=== PATIENT | female | born 1980 | race Caucasian/White ===

== ENCOUNTER 2020-05-30 18:26 | Emergency (ER) | payer OTHER, SELFPAY ==
[2020-05-30 18:27] VITALS: BP 114/81; PULSE 118; RESP 20; TEMP 36.9; O2SAT 100; BMI 26.2
--- NOTE | 2020-05-30 18:42 | HMH.EDGENADL ---
ED Disposition Condition on Discharge: Serious - Critical Care Critical Care Time: No <MohinijamJean - Last Filed: 05/30/20 20:00> <Martin Fabian - Last Filed: 05/30/20 20:52> Clinical Impression: Hemorrhage, , early, Miscarriage Disposition: Home, Self-Care Instructions: DI for Miscarriage Additional Instructions: fluids and see dr ballesteros for follow up and recheck levels on sunday and return to ed if needed Referrals: PCP,Merlene [Primary Care Provider] - Costa Ballesteros MD [Staff Physician] - Attestation: On 05/30/20, the high probability of a clinically significant, sudden or life threatening deterioration of the following system(s) required my full and direct attention, intervention and personal management. The time I documented below is in addition to time spent performing reported procedures but includes the following listed in this critical care notation. Medical Decision Making - Feliciaon Inquiry Pt receiving controlled substance: No - Lab Data Result diagrams: 05/30/20 18:36 05/30/20 18:36 <VladislavJean - Last Filed: 05/30/20 20:00> - Lab Data Lab results reviewed: Yes: I reviewed the patient's lab results. Result diagrams: 05/30/20 18:36 05/30/20 18:36 - US Data US Images: Pelvis ED US Reviewed: Yes: I discussed the US results w/the radiologist Preliminary Findings: Abnormal Pelvis (prob miscarriage ) - Physician Consults Physician Consulted: conrado Reason -: Pt condition - Reevaluation(s) Time: 20:49 <Martin Fabian - Last Filed: 05/30/20 20:52> Vital Signs: 05/30/20 18:27 Temperature 98.4 F Temperature Source Oral Pulse Rate [Left Radial] 118 H Respiratory Rate 20 Blood Pressure [Right Arm] 114/81 Blood Pressure Mean [Right Arm] 92 Blood Pressure Source [Right Arm] Automatic Cuff Blood Pressure Position [Right Arm] Sitting 02 Sat by Pulse Oximetry 100 Oxygen Delivery Method Room Air - Lab Data Lab Results 05/30/20 18:36: WBC 16.3 H, RBC 4.34, Hgb 13.2, Hct 39.9, MCV 91.8, MCH 30.5, MCHC 33.2, RDW 13.7, Plt Count 311, MPV 8.0, Neut % (Auto) 67.4, Lymph % (Auto) 26.3, [place] % (Auto) 4.3, Eos % (Auto) 1.5, Baso % (Auto) 0.4, Neut # (Auto) 11.0 H, Lymph # (Auto) 4.3, [place] # (Auto) 0.7, Eos # (Auto) 0.3, Baso # (Auto) 0.1, Total Counted 100, Neutrophils % (Manual) 82 H, Lymphocytes % (Manual) 14, Monocytes % (Manual) 4, Platelet Estimate Normal, RBC Morphology Normal 05/30/20 18:36: Sodium 134 L, Potassium 3.6, Chloride 101, Carbon Dioxide 29, Anion Gap 7.6, BUN 6 L, Creatinine 0.60, Estimated Creat Clear 117, Estimated GFR 111, Est GFR ( Amer) 135, Glucose 89, Calcium 9.5, Total Bilirubin 0.4, AST 41 H, ALT 46, Alkaline Phosphatase 89, Total Protein 8.8 H, Albumin 4.4, Globulin 4.4 H, Albumin/Globulin Ratio 1.0 L 05/30/20 18:36: Serum HCG, Qual Positive 05/30/20 18:36: TSH 2.44, Free T4 Index 3.3 L, Thyroxine (T4) 10.9, T3 Uptake 30 05/30/20 18:36: HCG, Quant 9272 H 05/30/20 18:51: Urine Color Red, Urine Appearance Turbid, Urine pH 6.5, Ur Specific [place] 1.025, Urine Protein 3+, Urine Glucose (UA) Negative, Urine Ketones Negative, Urine Blood 3+, Urine Nitrate Negative, Urine Bilirubin Negative, Urine Urobilinogen 0.2, Ur Leukocyte Esterase Negative, Urine RBC Tntc, Urine WBC 10-20 Orders (Tests/Meds): ED MEDICATIONS Generic Name Dose Route Start Last Admin Trade Name Freq PRN Reason Stop Dose Admin Sodium Chloride 1,000 mls @ 999 mls/hr 05/30/20 19:00 05/30/20 18:58 Sod Chlor 0.9% 1000ml Bag IV 05/30/20 20:00 999 mls/hr .[id number] RICKY Administration ORDERS Category Date Time Status ABO/RH Type Stat BBK 05/30/20 20:41 Ordered Urine Culture Stat Micro 05/30/20 18:51 Received US OB transvaginal Stat Ultrasound 05/30/20 19:25 Ordered - Reevaluation(s) Reevaluation #1: doing better (Martin Fabian) Medical Decision Narrative: 8:00 PM: At shift change, I have discussed the patient with Dr. Fabian, who will a
[2020-05-30 18:47] LABS: Basophils # 0.1 K/mm3 (0-0.2); Basophils % 0.4 % (0.1-2.0); Eosinophils # 0.3 K/mm3 (0.0-0.4); Eosinophils % 1.5 % (0.1-12.0); Hematocrit 39.9 % (37.0-47.0); Hemoglobin 13.2 g/dL (12.2-16.2); Lymphocytes # 4.3 K/mm3 (0.7-4.5); Lymphocytes % 26.3 % (10-50); Mean Corpuscular HGB Conc 33.2 g/dL (31.8-35.4); Mean Corpuscular Hemoglobin 30.5 pg (27.0-31.2); Mean Corpuscular Volume 91.8 fl (81-99); Monocytes # 0.7 K/mm3 (0.1-1.0); Monocytes % 4.3 % (1.7-9.3); Neutrophils % 67.4 % (37.0-80.0); Platelet Count 311 K/mm3 (142-424); Red Blood Count 4.34 M/mm3 (4.20-5.40); Red Cell Distribution Width 13.7 % (11.5-17.5); White Blood Count 16.3 K/mm3 (4.8-10.8)
[2020-05-30 18:52] LABS: MANUAL DIFFERENTIAL MANUAL DIFFERENTIAL (MANUAL DIFF)
[2020-05-30 18:53] LABS: Chloride 101 mmol/L (98-107); Potassium 3.6 mmoL/L (3.5-5.1); Sodium 134 mmol/L (136-145)
[2020-05-30 18:54] LABS: Microscopic, Urine URINE MICROSCOPIC (MICROSCOPIC)
[2020-05-30 18:56] LABS: Alanine Aminotransferase 46 U/L (12-78); Albumin Level 4.4 g/dl (3.5-5.0); Alkaline Phosphatase 89 U/L (38-126); Anion Gap 7.6 mEq/L (5-15); Aspartate Amino Transferase 41 U/L (14-36); Bilirubin,Total 0.4 mg/dl (0.2-1.3); Blood Urea Nitrogen 6 mg/dl (7-17); Carbon Dioxide 29 mmol/L (22.0-30.0); Creatinine Clearance Estimated 117 mL/min (50-200); Estimated Glomerular Filt Rate 111 ml/min (>60); GFR (African American) 135 ML/MIN (>60); Globulin 4.4 g/dL (1.3-3.2); Total Protein,Serum 8.8 g/dl (6.3-8.2)
[2020-05-30 18:57] LABS: Calcium 9.5 mg/dl (8.4-10.2); Glucose 89 mg/dl (74-100)
[2020-05-30 19:01] LABS: HCG Qualitative, Serum Positive (Negative)
[2020-05-30 19:02] LABS: Appearance,Urine TURBID (Clear); Bilirubin,Urine Negative (Negative); Blood, Urine 3+ (Negative); Color,Urine RED (Yellow); Glucose,Urine (UA) Negative (Negative); Ketones,Urine Negative (Negative); Leukocyte Esterase,Urine Negative (Negative); Nitrate,Urine Negative (Negative); PH,Urine 6.5 (5.0-8.5); Protein,Urine 3+ (Negative); Specific Gravity, Urine 1.025 (1.005-1.030); Urobilinogen,Urine 0.2 EU/dl (0.2)
[2020-05-30 19:03] LABS: RBC,Urine TNTC #/hpf (0-3)
[2020-05-30 19:05] LABS: Lymphocytes % 14 % (10-50); Monocytes % 4 % (2-9); Neutrophils % 82 % (42-76); Platelet Estimate Normal; RBC Morphology Normal; Total Cells Counted 100
--- NOTE | 2020-05-30 19:25 | US_ITS ---
PROCEDURE: US OB TRANSVAGINAL CLINICAL INDICATION: bleeding, , r/o ectopic COMPARISON: No exams were available for comparison FINDINGS: The uterus is prominent at 9 x 5 x 5 cm. The endometrium is thickened at 18 mm with irregularity of the endometrium and heterogeneous echogenicity of the endometrium with some areas of decreased echogenicity but with irregular contour and may represent blood clot. A normal appearing gestational sac is not identified The left ovary is 3 x 3 cm. The right ovary is 2.6 x 2.4 cm. A small cyst is present in the left ovary with some irregularity of its margins possibly due to a corpus luteum. Cannot exclude the possibility of an ectopic . No cul-de-sac fluid evident. IMPRESSION: 1. Thickened endometrium with heterogeneous echogenicity suggesting blood clot. A normal gestational sac is not identified. 2. Possible corpus luteum cyst on the left. Cannot exclude the possibility of an ectopic based on the above imaging findings. Follow-up is suggested Dictated by: Orestes Tinoco MD 05/31/2020 09:11 Orestes Tinoco MD in [facility] 05/31/2020 09:11
[2020-05-30 19:30] LABS: Triiodothryronine (T3) Uptake 30 % (23.5-40.5)
[2020-05-30 19:31] LABS: Free Thyroxine Index 3.3 ug/dL (5.93-13.13); T4 (Thyroxine) 10.9 ug/dl (5.53-11.0)
[2020-05-30 19:44] LABS: Thyroid Stimulating Hormone 2.44 uIU/mL (0.465-4.68)
[2020-05-30 19:49] LABS: HCG,Quantitative 9272 mIU/ml (0-5.42)
--- NOTE | 2020-05-30 20:35 | PC.NURSE ---
Pt back in room from [facility]
[2020-05-30 21:29] VITALS: BP 117/78; PULSE 91; RESP 16; TEMP 36.9; O2SAT 99
== END 2020-05-30 21:32 | disposition home or self-care (01) ==
PROVIDERS: Emergency Provider Emergency Medicine
DX: O08.1 Delayed or excessive hemorrhage following ectopic and molar pregnancy; Z88.0 Allergy status to penicillin; Z85.41 Personal history of malignant neoplasm of cervix uteri
CPT/HCPCS: 76817; 80053; 81001; 84436; 84443; 84479; 84702; 84703; 85007; 85025; 86900; 86901; 87086; 96365; 99283

== ENCOUNTER → 2020-06-10 15:34 | Outpatient (CLI) | payer OTHER, SELFPAY ==
[2020-06-10 16:44] LABS: HCG,Quantitative 149 mIU/ml (0-5.42)
== END ==
PROVIDERS: Visit Provider Obstetrics & Gynecology
DX: O03.9 Complete or unspecified spontaneous abortion without complication (principal)
CPT/HCPCS: 36415; 84702

== ENCOUNTER → 2020-06-11 11:12 | Outpatient (CLI) | payer OTHER, SELFPAY ==
--- NOTE | 2020-06-11 11:24 | US_ITS ---
PROCEDURE: US TRANSVAGINAL CLINICAL INDICATION: MISCARRIAGE Vaginal bleeding COMPARISON: US US OB TRANSVAGINAL from 05/30/2020 FINDINGS: UTERUS: 7cm x 4cmx 4cm with a combined endometrial thickness of there is some heterogeneous echogenicity within the endometrial area at the fundal portion. The endometrium at this region measures 11 mm in thickness. LEFT OVARY: 9wls4una8.6cm with a volume of 7.5ml. RIGHT OVARY: [id number] with a volume of 9.6ml. There is a small amount fluid in the cul-de-sac. No adnexal mass apparent IMPRESSION: There is some heterogeneous echogenicity within the endometrium which could be due to some residual blood/retained products of conception. Follow-up is suggested to confirm resolution. The heterogeneous echogenicity of the endometrium is somewhat less apparent than when compared to 05/30/2020. Dictated by: Orestes Tinoco MD 06/11/2020 13:33 Orestes Tinoco MD in [facility] 06/11/2020 13:33
== END ==
PROVIDERS: Visit Provider Obstetrics & Gynecology
DX: R10.2 Pelvic and perineal pain (principal); O03.9 Complete or unspecified spontaneous abortion without complication
CPT/HCPCS: 76830

== ENCOUNTER 2021-04-15 05:26 | Inpatient (IN) | payer OTHER, SELFPAY ==
[2021-04-15] VITALS (45 sets, daily range): BP systolic 91–197; BP diastolic 55–119; PULSE 80–141; RESP 18–39; TEMP 36.6–37.7; O2SAT 95–100; BMI 21.2; BMI 19.5; BMI 20.3
--- NOTE | 2021-04-15 05:45 | PC.NURSE ---
Called physical testing supervisor for assistance as pt is being uncooperative with staff and despite x14 PIV attempts, unable to access IV or collect blood.
[2021-04-15 06:07] LABS: Coronavirus 19, PCR Not Detected (NotDetected); Influenza A, PCR Not Detected (NotDetected); Influenza B, PCR Not Detected (NotDetected)
--- NOTE | 2021-04-15 06:10 | PC.NURSE ---
House at bedside with another nurse for PIV attempt, still remain unsuccessful. Called lab to attempt for labs.
--- NOTE | 2021-04-15 06:38 | PC.NURSE ---
achieved PIV access to R wrist with 24g, gave 2mg narcan IVP and zofran 4mg IVP, and began warm NS.
[2021-04-15 06:46] LABS: Microscopic, Urine URINE MICROSCOPIC (MICROSCOPIC)
[2021-04-15 06:48] LABS: Appearance,Urine CLEAR (Clear); Blood, Urine Negative (Negative); Color,Urine YELLOW (Yellow); Glucose,Urine (UA) Negative (Negative); Ketones,Urine TRACE (Negative); Leukocyte Esterase,Urine Negative (Negative); Nitrate,Urine Negative (Negative); PH,Urine 7.5 (5.0-8.5); Protein,Urine 1+ (Negative); Specific Gravity, Urine 1.025 (1.005-1.030)
[2021-04-15 06:49] LABS: Bilirubin,Urine 1+ (Negative)
--- NOTE | 2021-04-15 06:50 | PC.NURSE ---
Lab at bedside, he refused to attempt to stick pt despite several staff members at bedside to assist. States to call us back if she calms down .
[2021-04-15 06:51] LABS: Squamous Epithelial Cell,Urine Occasional #/hpf (0-5)
--- NOTE | 2021-04-15 06:58 | PC.NURSE ---
Due to patient condition, spoke with patient sister to inquire on patients condition. Patients sister states that she was unsure of what the patient took. States that she is aware that the patient used heroin but cannot confirm if patient was given narcan at home . Sister states that the patients boyfriend woke me up and said I had to get her to the hospital because she was acting funny and couldn't stop puking .
[2021-04-15 07:01] LABS: Barbiturates Screen,Urine Negative ng/ml (<200)
[2021-04-15 07:02] LABS: Amphetamine/Metha Screen,Urine Positive ng/ml (<1000); Benzodiazepines Screen,Urine Negative ng/ml (<200)
[2021-04-15 07:03] LABS: Cannabinoid Screen,Urine Positive ng/ml (<50)
[2021-04-15 07:04] LABS: Cocaine Screen,Urine Negative ng/ml (<300); Methadone Screen,Urine Negative ng/ml (<300)
[2021-04-15 07:05] LABS: Opiate Screen,Urine Positive ng/ml (<300)
[2021-04-15 07:06] LABS: Phencyclidine Screen,Urine Negative ng/ml (<25)
--- NOTE | 2021-04-15 07:15 | PC.NURSE ---
Pt now very combative with staff; she is attempting to punch, kick, throw her body out of the bed and into the side rails. Pt continues to projectile vomiting and refuses to sit up in bed safely. Pt placed in 4pt restraints at this time. Suction on and at bedside. Pt continues to be confused and risk for injury to herself and staff members. Dr. Fabian notified and at bedside.
[2021-04-15 07:24] LABS: Urine Pregnancy, HCG Qual. Negative (Negative)
--- NOTE | 2021-04-15 07:32 | HMH.EDOD ---
ED Disposition Condition on Discharge: Fair - Critical Care Critical Care Time: No <Martin Fabian - Last Filed: 04/15/21 08:28> Condition on Discharge: Serious - Critical Care Critical Care Time: Yes Total Critical Care Time: 60 Vital system(s) involved:: Central Nervous System My critical care processes included: Assessment & monitoring of V/S, Initial and Re-exams, Data Review/Interpretation, Coordinating Care, Medication Orders and management, Documentation <MarkosneeruJean - Last Filed: 04/15/21 14:12> Clinical Impression: IVDU (intravenous drug user), Amphetamine abuse, Hypokalemia Sepsis Qualifiers: Sepsis type: sepsis due to unspecified organism Sepsis acute organ dysfunction status: unspecified Qualified Code(s): A41.9 - Sepsis, unspecified organism Disposition: Admitted As Inpatient Referrals: Provider,Referral, MD [Primary Care Provider] - Attestation: On 04/15/21, the high probability of a clinically significant, sudden or life threatening deterioration of the following system(s) required my full and direct attention, intervention and personal management. The time I documented below is in addition to time spent performing reported procedures but includes the following listed in this critical care notation. Medical Decision Making - Medical Records Medical records reviewed: Yes: I reviewed the patient's medical records. - Feliciano Inquiry Pt receiving controlled substance: No - Lab Data Lab results reviewed: Yes: I reviewed the patient's lab results. <Martin Fabian - Last Filed: 04/15/21 08:28> - Lab Data Result diagrams: 04/15/21 10:15 04/15/21 10:15 - Radiology Data #1 Image(s): Chest Image Reviewed: Yes I reviewed the patient's radiology image, Yes I have reviewed radiologist's interpretation - CT Data CT Scan: Head Time Received: 12:[address] Reviewed: Yes: I have viewed the radiologist's interpretation - US Data US Images: Other (ECHO) - Physician Consults Physician Consulted: Caren Time: 14:09 Reason -: Admission Comment/Response: Agrees to admit the patient to the hospital. We discussed the patient's clinical information, including history, exam, laboratory and radiology results and ED course. Per hospital procedure, I will write temporary bridge inpatient orders on the patient. Specific orders requested by the admitting physician: Add cefepime. Normal saline at 100 cc/h. <Jean Loomis - Last Filed: 04/15/21 14:12> Vital Signs: 04/15/21 05:27 04/15/21 07:31 04/15/21 08:11 Temperature 97.8 F Temperature Source Rectal Pulse Rate Pulse Rate [Right] 128 H Respiratory Rate 22 39 H Blood Pressure 121/92 H Blood Pressure [Right Arm] 126/80 Blood Pressure Mean 100 Blood Pressure Mean [Right Arm] 95 Blood Pressure Source Blood Pressure Position 02 Sat by Pulse Oximetry 95 Oxygen Delivery Method Room Air 04/15/21 09:34 04/15/21 10:00 04/15/21 10:35 Temperature Temperature Source Pulse Rate 135 H 116 H 141 H Pulse Rate [Right] Respiratory Rate 35 H 21 Blood Pressure 142/103 H 125/82 197/105 H Blood Pressure [Right Arm] Blood Pressure Mean Blood Pressure Mean [Right Arm] Blood Pressure Source Blood Pressure Position 02 Sat by Pulse Oximetry 95 100 100 Oxygen Delivery Method Mechanical Ventilation Mechanical Ventilation 04/15/21 10:38 04/15/21 11:16 04/15/21 11:18 Temperature Temperature Source Pulse Rate 117 H 120 H 122 H Pulse Rate [Right] Respiratory Rate 21 21 27 H Blood Pressure 192/119 H 151/91 H 128/76 Blood Pressure [Right Arm] Blood Pressure Mean Blood Pressure Mean [Right Arm] Blood Pressure Source Manual Cuff/ Auscultation Blood Pressure Position Sitting 02 Sat by Pulse Oximetry 100 99 100 Oxygen Delivery Method Mechanical Ventilation Mechanical Ventilation 04/15/21 11:29 04/15/21 11:45 04/15/21 12:00 Temperature Temperature Source Pu
--- NOTE | 2021-04-15 07:57 | PC.NURSE ---
Updated sister on pt condition and she now is requiring restraints. Sister unable to get ahold of brother for further info, their ride was a friend who does not know any info, and sister does not have a phone or know the number to call and get any info.
--- NOTE | 2021-04-15 09:09 | XR_ITS ---
FINAL REPORT CLINICAL HISTORY: fever et tube placement, ng placement, central line placement FINDINGS: A single PA view of the chest was obtained. There is no prior exam for comparison. An ET tube is present with the tip at the origin of the right mainstem bronchus. An NG tube is curled in the proximal stomach then reenters the esophagus with the tip in the mid esophagus. The cardiac and mediastinal silhouettes are within normal limits. The lungs are clear. There is no effusion or pneumothorax. No acute osseous abnormality is identified. occupational therapy technician, Metcalf, was notified of tube placement at the time of interpretation. IMPRESSION: No radiographic evidence of acute cardiac or pulmonary disease on this single view of the chest. Tube placement as described. Reviewed, Interpreted and Dictated by Afsaneh Capellan MD Transcribed by Jenae Mora Authenticated by Afsaneh Capellan MD on 04/15/2021 11:20:[address] [facility]
--- NOTE | 2021-04-15 09:11 | PC.NURSE ---
Took a rectal temp it is 102.4.
--- NOTE | 2021-04-15 09:13 | PC.NURSE ---
Rad called and stated to let them know when pt was able to have her xrays done.
--- NOTE | 2021-04-15 09:14 | CA_ITS ---
APPROVED REPORT EXAM: Comprehensive 2D, Doppler, and color-flow Echocardiogram Storeperson: Zakiya Rice RVT Ht: 5 ft 3 in Wt: 110lbs BSA: 1.50 BP: 121/92 mmHg Indications: FEVER,IV DRUG USE,PT INTUBATED TDS-PT MOVING THRU EXAM 2D Dimensions LVOT 2.03 cm (M/F) 1.5-2.5 LA Volume 13.60 mL LA Volume Index 9.06 mL/m2 (M/F) 16-34 M-Mode Dimensions RVDd 2.22 cm (0.9-2.6) LA Diam 2.20 cm (1.9-4.0) LVDd 4.22 cm (3.5-5.7) Ao Diam 2.98 cm (2.0-3.7) LVDs 2.91 cm (3.5-5.7) IVSd 0.44 cm (0.6-1.1) PWd 0.66 cm (0.6-1.1) EF (Teich) 59.10% FS 31.00% EDV (Teich) 79.50 mL TAPSE 2.12 (<1.7) ESV (Teich) 32.50 mL LV Diastology E Decel Time 180.00 (160-240 msec) E/A Ratio 0.9 MED E' 9.00 (< 7 cm/sec) E'/MED E' Ratio 8.97 (>14) LAT E' 17.70 (<10 cm/sec) E/LAT E' Ratio 4.56 (>14) Mitral Valve MV E Max Yuan. 81.00 (40-130 cm/s) MV A Velocity 92.00 (40-130 cm/s) E/A Ratio 0.88 MV Decel. Time 180.00 (160-240 ms) MV PHT 53.00 ms Pulmonary Valve PV Peak Velocity 74.00 (50-150 cm/s) Tricuspid Valve TR P. Velocity 237.00 cm/s RAP Estimate 10.00 mmHg RVSP 32.40 mmHg Left Ventricle Left atrium is normal size, left ventricle is normal size, there is no concentric left ventricular hypertrophy, visually estimated ejection fraction 55% with no regional wall motion abnormality, diastolic parameters are within normal range. Right Ventricle Right atrium and right ventricle are normal size and contractility. Aortic Valve Aortic valve is grossly normal, there is no aortic stenosis or aortic insufficiency. Mitral Valve Mitral valve grossly normal, there is trace mitral regurgitation. Tricuspid Valve Tricuspid valve grossly normal, there is trace tricuspid regurgitation, calculated right ventricular systolic pressure is 32 mmHg. Pulmonic Valve Pulmonic valve is poorly visualized. Great Vessels Aortic root is normal size. Inferior vena cava normal size with normal inspiratory collapse. Pericardium No significant pericardial effusion noted. Conclusion 1. Normal left ventricular size, preserved left ventricular systolic function, visually estimated ejection fraction 55% with no regional wall motion abnormality, diastolic parameters are within normal range. 2. Trace mitral and tricuspid regurgitation. Calculated right ventricular systolic pressure 32 mmHg. 3. Inferior vena cava is normal size with normal inspiratory collapse. 4. No significant pericardial effusion noted. Electronically signed by : Joaquim Dash MD 04/15/2021 12:58:07
--- NOTE | 2021-04-15 09:22 | PC.NURSE ---
v/s delayed due to pt not sitting still and thrashing around.
--- NOTE | 2021-04-15 09:33 | PC.NURSE ---
advised echo lab that they would have to come back for echo.
--- NOTE | 2021-04-15 10:23 | CT_ITS ---
FINAL REPORT TECHNIQUE: Thin section axial images were obtained from skull base to vertex without contrast. Multiplanar reconstruction images were obtained from the axial data. CLINICAL HISTORY: AMS FINDINGS: There is artifact on some of the images, possibly related to motion and possibly related to overlying wires and lines. There is no mass effect or midline shift. There is no hydrocephalus. The ventricles are symmetric in size and configuration. There is no extra-axial or intraparenchymal hemorrhage. The posterior fossa is without acute abnormality. The basilar cisterns are preserved. The soft tissues are without acute abnormality. No acute osseous abnormality is identified. IMPRESSION: No acute intracranial abnormality. Authenticated by Afsaneh Capellan MD on 04/15/2021 11:36:13 AM [facility]
--- NOTE | 2021-04-15 10:27 | PC.NURSE ---
rad at for portable cxr
--- NOTE | 2021-04-15 10:34 | PC.NURSE ---
notified pharmacy of vancomycin dosing consult
--- NOTE | 2021-04-15 10:40 | ECG_ITS ---
APPROVED REPORT Exam: Resting ECG HR:127 bpm ECG Measurements Heart Rate 127 AXES IA 116 P 83 QRSd 76 QRS 84 QT 346 T 66 QTc 502 Conclusion Sinus tachycardia Right atrial enlargement Borderline ECG Electronically signed by : Maikol Pierce MD 04/16/2021 09:25:13
[2021-04-15 10:43] LABS: Alanine Aminotransferase 62 U/L (12-78); Albumin Level 3.6 g/dl (3.5-5.0); Albumin/Globulin Ratio 1.1 (1.1-1.8); Alkaline Phosphatase 120 U/L (38-126); Anion Gap 13.9 mEq/L (5-15); Aspartate Amino Transferase 99 U/L (14-36); Bilirubin,Total 0.6 mg/dl (0.2-1.3); Blood Urea Nitrogen 14 mg/dl (7-17); Calcium 8.8 mg/dl (8.4-10.2); Carbon Dioxide 23 mmol/L (22.0-30.0); Chloride 107 mmol/L (98-107); Creatine Kinase 190 U/L (30-135); Creatinine Clearance Estimated 74 mL/min (50-200); Estimated Glomerular Filt Rate 79 ml/min (>60); GFR (African American) 96 ML/MIN (>60); Globulin 3.4 g/dL (1.3-3.2); Glucose 122 mg/dl (74-100); Sodium 141 mmol/L (136-145)
[2021-04-15 10:44] LABS: Ethyl Alcohol < 10 mg/dl (0-10)
--- NOTE | 2021-04-15 10:45 | PC.NURSE ---
Changed to 7 mcg
[2021-04-15 10:46] LABS: Basophils # 0.1 K/mm3 (0-0.2); Basophils % 0.5 % (0.1-2.0); Eosinophils % 0.2 % (0.1-12.0); Hematocrit 42.9 % (37.0-47.0); Hemoglobin 13.8 g/dL (12.2-16.2); Lactic Acid 3.9 mmol/L (0.7-2.1); Lymphocytes # 0.5 K/mm3 (0.7-4.5); Lymphocytes % 2.1 % (10-50); Mean Corpuscular HGB Conc 32.2 g/dL (31.8-35.4); Mean Corpuscular Hemoglobin 29.4 pg (27.0-31.2); Mean Corpuscular Volume 91.6 fl (81-99); Mean Platelet Volume 8.7 fl (7.4-10.4); Monocytes # 0.5 K/mm3 (0.1-1.0); Monocytes % 2.2 % (1.7-9.3); Platelet Count 280 K/mm3 (142-424); Potassium 2.9 mmoL/L (3.5-5.1); Red Blood Count 4.68 M/mm3 (4.20-5.40); Red Cell Distribution Width 15.8 % (11.5-17.5); White Blood Count 24.2 K/mm3 (4.8-10.8)
--- NOTE | 2021-04-15 10:46 | INFXCTL.NOTE ---
Spoke with milena from lab potassium 2.9
[2021-04-15 10:47] LABS: Acetaminophen < 10 ug/ml (10-30); Salicylate < 1.0 mg/dL (2.0-20.0)
[2021-04-15 10:48] LABS: C-Reactive Protein 25.9 mg/L (0-4); MANUAL DIFFERENTIAL MANUAL DIFFERENTIAL (MANUAL DIFF)
--- NOTE | 2021-04-15 10:54 | PC.NURSE ---
Addendum entered by Gisella White RN 04/15/21 10:58: RT pulled ETT back to 18 cm at the corner of the mouth at this time per ER MD request Original Note: OG tube pulled back to 50 cm at this time per ER MD request.
--- NOTE | 2021-04-15 10:57 | PC.NURSE ---
pt to rad with RN and RT
[2021-04-15 11:00] LABS: Lymphocytes % 8 % (10-50); Monocytes % 2 % (2-9); Neutrophils % 90 % (42-76); Platelet Estimate Normal; RBC Morphology Normal; Total Cells Counted 100
[2021-04-15 11:02] LABS: Procalcitonin 57.6 ng/mL (0.0-2.0)
--- NOTE | 2021-04-15 11:02 | XR_ITS ---
FINAL REPORT CLINICAL HISTORY: tube placement adjustment FINDINGS: A portable view of the chest was obtained. Comparison is made to a prior exam from 20 minutes prior. The ET tube has been retracted and now terminates 6 cm superior to the shelia. The NG tube is been repositioned now terminating in the stomach. The right IJ catheter is unchanged. Cardiac and mediastinal silhouettes are within normal limits. The lungs are clear. There is no pleural effusion or pneumothorax. IMPRESSION: Reposition of the ET and NG tubes in good position. Reviewed, Interpreted and Dictated by Shelia Capellan MD Transcribed by Michael Stockton Authenticated by Shelia Capellan MD on 04/15/2021 11:20:16 AM [facility]
--- NOTE | 2021-04-15 11:21 | PC.NURSE ---
MD going to speak with pt's family at this time.
[2021-04-15 11:22] LABS: Erythrocyte Sedimentation Rate 36 mm/hr (0-20)
--- NOTE | 2021-04-15 11:33 | PC.NURSE ---
Pt continued to thrash around and tried to pull lines out. I kept titrating pt up and final titration was at 50 mcg.
[2021-04-15 11:37] LABS: ABG Base Excess -5.6 mmol/L (-2.4-2.3); ABG HCO3 20.3 mmhg (22.0-26.0); ABG Oxygen Saturation 99 % (90-100); ABG PCO2 39.4 mmhg (35.0-45.0); ABG PH 7.33 mmol/L (7.35-7.45); ABG PO2 175.7 mmhg (80-100); ABG TCO2 21.5 mmhg (23-27)
[2021-04-15 11:41] LABS: Allen's Test Patient Unable; Oxygen 50 %; PEEP 5; Source Right Radial; Tidal Volume 380; Vent Rate 20
--- NOTE | 2021-04-15 11:49 | PC.NURSE ---
echo lab at bedside
[2021-04-15 11:52] LABS: ABG Base Excess -5.6 mmol/L (-2.4-2.3); ABG HCO3 20.3 mmhg (22.0-26.0); ABG Oxygen Saturation 99 % (90-100); ABG PCO2 39.4 mmhg (35.0-45.0); ABG PH 7.33 mmol/L (7.35-7.45); ABG PO2 175.7 mmhg (80-100); ABG TCO2 21.5 mmhg (23-27); Allen's Test acceptable; Oxygen 50 %; PEEP 5; Tidal Volume 380; Vent Rate 20
[2021-04-15 11:53] LABS: Chloride, Arterial 109 mmol/L (98-107); Lactate Arterial 2.9 mmol/L (0.4-2.0); Sodium Arterial 141 mmol/L (137-145)
--- NOTE | 2021-04-15 11:54 | PC.NURSE ---
Pt is currently having an echo
--- NOTE | 2021-04-15 12:16 | PC.NURSE ---
PT was moving around so we titrated to 22 mcg
--- NOTE | 2021-04-15 13:09 | PC.NURSE ---
ER at with nursing staff for spinal tap
--- NOTE | 2021-04-15 13:15 | PC.NURSE ---
Took a rectal temp on pt it was 98.5
--- NOTE | 2021-04-15 13:27 | PC.NURSE ---
Pt is doing well with great vitals.
[2021-04-15 13:33] LABS: Glucose,CSF 69 mg/dl (40-70)
[2021-04-15 13:59] LABS: Appearance,CSF Clear (Clear); Red Blood Cell,CSF 0 cells/uL (0); Volume,CSF 5 mL; White Blood Cell,CSF 2 cells/uL (0-5)
--- NOTE | 2021-04-15 14:04 | PC.NURSE ---
LENORE SORENSEN speaking with Dr. Fabian
--- NOTE | 2021-04-15 14:09 | PC.NURSE ---
notified care management of admission, spoke with ruy
--- NOTE | 2021-04-15 14:13 | PC.NURSE ---
per care management pal bautista, pt to remain in ED until bed available
[2021-04-15 14:27] LABS: Reflex Lactic Add Lactic Reflex
[2021-04-15 14:33] LABS: Mononuclear WBCs,CSF 0 %; Polynuclear WBCs,CSF 0 %
--- NOTE | 2021-04-15 14:38 | PC.NURSE ---
Called pharmacy about inpatient vanc
--- NOTE | 2021-04-15 14:46 | PC.NURSE ---
pt sister called, she left a phone number that she can be contacted at states it is a family friends phone [phone]
--- NOTE | 2021-04-15 14:48 | HMH.PHACONS ---
- Pharmacy Consult Date: 04/15/21 Time: 14:48 Referring provider: DR HARDY Reason for Consult:: VANCOMYCIN DOSING CONSULT Allergies and ADEs:: Allergies Allergy/AdvReac Type Severity Reaction Status Date / Time codeine Allergy Verified 06/10/20 16:01 Penicillins Allergy Verified 06/10/20 16:01 Home Medications:: Home Medications Medication Instructions Recorded Confirmed Type No Known Home Medications 05/30/20 05/30/20 History Height: 1.6 m Weight: 49.895 kg Laboratory Results:: Laboratory Results - last 24 hr 04/15/21 06:00: SARS-CoV-2 (PCR) Not detected, Influenza A Untype (PCR) Not detected, Influenza Type B (PCR) Not detected 04/15/21 06:40: Urine Color Yellow, Urine Appearance Clear, Urine pH 7.5, Ur Specific [place] 1.025, Urine Protein 1+, Urine Glucose (UA) Negative, Urine Ketones Trace, Urine Blood Negative, Urine Nitrate Negative, Urine Bilirubin 1+ A, Urine Urobilinogen 1.0, Ur Leukocyte Esterase Negative, Urine RBC 3-5, Urine WBC 3-5, Ur Squamous Epith Cells Occasional, Urine Bacteria None 04/15/21 06:40: Urine Opiates Screen Positive H, Urine Methadone Screen Negative, Ur Barbituates Screen Negative, Ur Phencyclidine Scrn Negative, Ur Amphetamines Screen Positive H, U Benzodiazepines Scrn Negative, Urine Cocaine Screen Negative, U Marijuana (THC) Screen Positive H 04/15/21 06:40: Urine HCG, Qual Negative 04/15/21 09:59: Specimen Source r radial, O2 % 50, ABG pH 7.33 L, ABG pCO2 39.4, ABG pO2 175.7 H, ABG HCO3 20.3 L, ABG Total CO2 21.5 L, ABG O2 Saturation 99, ABG Base Excess -5.6 L, Orestes Test acceptable, ABG Sodium 141, ABG Potassium 3.0 L, ABG Chloride 109 H, ABG Lactate 2.9 H, Vent Rate 20, Tidal Volume 380, PEEP 5, Arterial Blood Potassium 3.0 L, Arterial Blood Chloride 109 H 04/15/21 10:15: ESR 36 H 04/15/21 10:15: C-Reactive Protein 25.9 H, Procalcitonin 57.6 H, Salicylates < 1.0 L, Acetaminophen < 10 L 04/15/21 10:15: WBC 24.2 H*, RBC 4.68, Hgb 13.8, Hct 42.9, MCV 91.6, MCH 29.4, MCHC 32.2, RDW 15.8, Plt Count 280, MPV 8.7, Neut % (Auto) 95.0 H, Lymph % (Auto) 2.1 L, [place] % (Auto) 2.2, Eos % (Auto) 0.2, Baso % (Auto) 0.5, Neut # (Auto) 23.0 H, Lymph # (Auto) 0.5 L, [place] # (Auto) 0.5, Eos # (Auto) 0.0, Baso # (Auto) 0.1, Total Counted 100, Neutrophils % (Manual) 90 H, Lymphocytes % (Manual) 8 L, Monocytes % (Manual) 2, Platelet Estimate Normal, RBC Morphology Normal 04/15/21 10:15: Sodium 141, Potassium 2.9 L*, Chloride 107, Carbon Dioxide 23, Anion Gap 13.9, BUN 14, Creatinine 0.80, Estimated Creat Clear 74, Estimated GFR 79, Est GFR ( Amer) 96, Glucose 122 H, Calcium 8.8, Total Bilirubin 0.6, AST 99 H, ALT 62, Alkaline Phosphatase 120, Total Creatine Kinase 190 H, Total Protein 7.0, Albumin 3.6, Globulin 3.4 H, Albumin/Globulin Ratio 1.1 04/15/21 10:15: Plasma/Serum Alcohol < 10 04/15/21 10:15: Lactate 3.9 H 04/15/21 10:22: Specimen Source Right radial, O2 % 50, ABG pH 7.33 L, ABG pCO2 39.4, ABG pO2 175.7 H, ABG HCO3 20.3 L, ABG Total CO2 21.5 L, ABG O2 Saturation 99, ABG Base Excess -5.6 L, Orestes Test Patient unable, Vent Rate 20, Tidal Volume 380, PEEP 5 04/15/21 13:10: CSF Volume 5, CSF Appearance Clear, CSF WBC 2, CSF RBC 0, CSF Mononuclear WBCs % 0, CSF Polynuclear WBCs % 0 04/15/21 13:10: CSF Glucose 69, CSF Total Protein 33.0 Assessment and Plan - Assessment and plan all Dx Assessment and Plan for all problems:: Subjective and Objective Data: This is a 41 year old FEMALE patient with suspected sepsis. Measured serum creatinine (SCr) is 0.8 mg/dL. Given a height of 160 cm and a weight of 49.895 kg, estimated creatinine clearance is 73.6 mL/min (using the CrCl TBW body weight). The following targets were selected for dosing: - Desired AUC = 500 mcg*h/mL - Desired Cmax = 35 mcg/mL - Desired Cmin = 12.5 mcg/mL - Vd coefficient = 0.65 L/kg - Ke equation = CrCl*0.79208+0.0044 Calculations: Based on above, the following are calculated parameters for AUC-based vancomycin dosing
--- NOTE | 2021-04-15 15:26 | P.CONPHA_ITS ---
[facility] VTE Monitoring - Patient Demographics Admission date: 04/15/21 Report Date: 04/15/21 Time: 15:26 Allergies/Adverse Reactions: Patient Allergies codeine Allergy (Verified 06/10/20 16:01) Penicillins Allergy (Verified 06/10/20 16:01) Height: 1.6 m Weight: 49.895 kg Patient Problems: Current Active Problems IVDU (intravenous drug user) (Acute) Amphetamine abuse (Acute) Sepsis (Acute) Hypokalemia (Acute) - VTE Risk Labs: VTE Related Lab Results Hgb 13.8 g/dL (12.2-16.2) 04/15/21 10:15 Hct 42.9 % (37.0-47.0) 04/15/21 10:15 Plt Count 280 K/mm3 (142-424) 04/15/21 10:15 BUN 14 mg/dl (7-17) 04/15/21 10:15 Creatinine 0.80 mg/dl (0.52-1.04) 04/15/21 10:15 Estimated Creat Clear 74 mL/min (50-200) 04/15/21 10:15 Clinical Trial Participant: No - Prophylaxis VTE Prophylaxis Ordered?: Yes Types of VTE Prophylaxis: TEDS Knee High
--- NOTE | 2021-04-15 15:36 | PC.NURSE ---
PT is resting well vitals are good.
[2021-04-15 15:55] LABS: Lactic Acid Follow Up (RFLX 1) 1.3 mmol/L (0.7-2.1)
--- NOTE | 2021-04-15 16:25 | PC.NURSE ---
pt arrived to the ICU room 266 from the ED. Pt is on a vent with Propofol infusing @ 75mcg/kg/min. Pt localizing to pain. Hernandez catheter switched to temp sensing hernandez. Sheets changed. NSR on tele. BP 109/88. O2 sat 100% on 50% FiO2.
--- NOTE | 2021-04-15 18:29 | PC.NURSE ---
received call from father (Michael Vides) asking for information. I attempted to explain [place] privacy laws, including HIPAA, and how [facility] requires a password to be set up for staff to give out pt information. Before I could finish, he states that he will abhinav the hospital if I don't give out pt information and then hangs up the phone. He is listed as a customer contact representative in pt's chart, so I called him back to try and explain the situation and POC. He informs me that he is on his way to the hospital and hangs up on me again. supervisor smoke control (Betina) notified.
--- NOTE | 2021-04-15 18:33 | PC.NURSE ---
Addendum entered by Sharyn Mora RN 04/15/21 18:35: Correction time pt was intubated at 0948 Original Note: Pt was intubated
--- NOTE | 2021-04-15 18:45 | PC.NURSE ---
Father and sister escorted to pt's bedside by melt house drag operator (Betina). POC explained. Family voiced understanding. Password set up as Verónica . Family informs melt house drag operator that pt has an estranged who lives in [place]. Pt also has an adult daughter (Verónica) who also lives in [place]. Father explains that he will contact daughter and let her know what is going on with pt.
--- NOTE | 2021-04-15 23:28 | PC.NURSE ---
Sister called to ask for update on pt.
[2021-04-16] VITALS (29 sets, daily range): BP systolic 97–126; BP diastolic 54–84; PULSE 67–90; RESP 0–21; TEMP 36.7–37.2; O2SAT 97–100; BMI 21.4
--- NOTE | 2021-04-16 03:22 | PC.NURSE ---
No acute changes. Pt has tolerated vent. Became restless x1. Sedation increased. Propfol is infusing @ 55 mcg/kg/min. NS @100 ml/hr. Pt has low grade temp this shift. F/C draining to bedside with dark yellow urine. Sediment noted to urine. Urine output is less than 100 thus far. Medication administered per mar. Vents settings are as follows: AC, FiO2 50%, R 20, TV 380, PEEP 5. OG is clampd at this time. Family remains at bedside. Sister stated that pt has Hx of drugs and that it has got worse with time. She also stated that pt is on heroin and meth. No other concerns at this time. Will continue to monitor.
--- NOTE | 2021-04-16 06:00 | XR_ITS ---
PROCEDURE INFORMATION: Exam: XR Chest Exam date and time: 04/16/2021 6:00 AM Age: 41 years old Clinical indication: Device placement; Ett placement (vent status) TECHNIQUE: Imaging protocol: XR of the chest. Views: 1 view. COMPARISON: CR XR CHEST PORTABLE 04/15/2021 11:02 AM FINDINGS: Tubes, catheters and devices: Endotracheal tube is seen with the tip 3.3 cm from the shelia. Feeding tube is in the left upper quadrant, likely in the stomach. Right IJ central venous catheter is at the atrial caval junction. Lungs: No acute appearing consolidation or airspace disease. Pleural spaces: No pleural effusion. No pneumothorax. Heart/Mediastinum: No acute findings or cardiomegaly. Bones/joints: No acute findings. IMPRESSION: 1. No acute cardiopulmonary findings. 2. Lines tubes and catheters as described, unchanged.
[2021-04-16 06:50] LABS: Basophils # 0.1 K/mm3 (0-0.2); Basophils % 0.2 % (0.1-2.0); Eosinophils % 0.1 % (0.1-12.0); Hematocrit 35.4 % (37.0-47.0); Mean Corpuscular HGB Conc 31.6 g/dL (31.8-35.4); Mean Corpuscular Hemoglobin 29.2 pg (27.0-31.2); Mean Corpuscular Volume 92.3 fl (81-99); Monocytes % 4.5 % (1.7-9.3); Neutrophils # 19.1 K/mm3 (1.8-7.8); Neutrophils % 86.1 % (37.0-80.0); Platelet Count 208 K/mm3 (142-424); Red Blood Count 3.84 M/mm3 (4.20-5.40); Red Cell Distribution Width 16.1 % (11.5-17.5); White Blood Count 22.2 K/mm3 (4.8-10.8)
[2021-04-16 07:01] LABS: Anion Gap 6.4 mEq/L (5-15); Blood Urea Nitrogen 19 mg/dl (7-17); Calcium 7.5 mg/dl (8.4-10.2); Carbon Dioxide 25 mmol/L (22.0-30.0); Chloride 110 mmol/L (98-107); Creatinine Clearance Estimated 108 mL/min (50-200); Estimated Glomerular Filt Rate 111 ml/min (>60); GFR (African American) 134 ML/MIN (>60); Glucose 75 mg/dl (74-100); Potassium 3.4 mmoL/L (3.5-5.1); Sodium 138 mmol/L (136-145)
[2021-04-16 07:04] LABS: MANUAL DIFFERENTIAL MANUAL DIFFERENTIAL (MANUAL DIFF)
[2021-04-16 07:24] LABS: Hemoglobin 11.3 g/dL (12.2-16.2)
[2021-04-16 07:49] LABS: Lymphocytes % 11 % (10-50); Monocytes % 2 % (2-9); Neutrophils % 80 % (42-76); Total Cells Counted 100
[2021-04-16 07:51] LABS: Anisocytosis 1+; Platelet Estimate Normal
--- NOTE | 2021-04-16 10:30 | HMH.HP ---
*Admission Date: 04/15/21 *Chief complaint: drug overdose *History of present illness: this patient presented to the ed with hx of drug overdose by family - details from family were limited and unable to obtain hx from pt who was agitated - c/o vomiting and I think I'm gonna . She does report heroin IV use tonight. Pt's sister denies that she was given any narcan, and that I was woken up and my brother told me she shot up with heroin and now she is acting funny . Pt was in tub when sister found her and they brought her to ED. Pt vomiting undigested food and gastric contents. Pt not oriented but awake & drowsy.pt dev fever in the ed and Patient with severe delirium and agitation, now febrile. The only IV access obtained was an IV in her right foot. Nurses unable to obtain other access due to severe agitation and poor venous access. Unable to obtain blood work, chest x-ray, CT of head, echocardiogram due to severe agitation. Requires intubation and sedation to obtain these diagnostics as well as central line placement for access. pt was admitted for ivf and abx at this time with pending cultures [facility] History I have reviewed the patient's past medical history: Yes Medical History: Denies:: Internal Pacemaker *Have you ever received a pneumonia vaccine?: No *Have you received a flu vaccine this season?: No Other Surgeries: No: Pacemaker Amputation: No Fractures: No - *Social History Smoking Status: Current every day smoker # Packs/Day (cigarettes): 1 Alcohol Intake: current Substance Use Type: marijuana, heroin, amphetamines, IV drugs Last Used Substance: hours (ago) *Occupational Status:: unemployed *Travel in the last 8 weeks: None Family Hx:: Unable to obtain Review of Systems - Review of Systems Review of systems:: unable to obtain Meds Home Medications Medication Instructions Recorded Confirmed Type Unobtainable 04/15/21 04/15/21 History Allergies Allergy/AdvReac Type Severity Reaction Status Date / Time codeine Allergy Verified 06/10/20 16:01 Penicillins Allergy Verified 06/10/20 16:01 Exam Vital signs and Labs for Last 24 Hours: Temp Pulse Resp BP Pulse Ox 98.5 F 76 20 113/75 100 04/16/21 08:00 04/16/21 09:00 04/16/21 09:00 04/16/21 09:00 04/16/21 09:00 Laboratory Results - last 24 hr 04/15/21 09:59: Specimen Source r radial, O2 % 50, ABG pH 7.33 L, ABG pCO2 39.4, ABG pO2 175.7 H, ABG HCO3 20.3 L, ABG Total CO2 21.5 L, ABG O2 Saturation 99, ABG Base Excess -5.6 L, Orestes Test acceptable, ABG Sodium 141, ABG Potassium 3.0 L, ABG Chloride 109 H, ABG Lactate 2.9 H, Vent Rate 20, Tidal Volume 380, PEEP 5, Arterial Blood Potassium 3.0 L, Arterial Blood Chloride 109 H 04/15/21 10:15: ESR 36 H 04/15/21 10:15: C-Reactive Protein 25.9 H, Procalcitonin 57.6 H, Salicylates < 1.0 L, Acetaminophen < 10 L 04/15/21 10:15: WBC 24.2 H*, RBC 4.68, Hgb 13.8, Hct 42.9, MCV 91.6, MCH 29.4, MCHC 32.2, RDW 15.8, Plt Count 280, MPV 8.7, Neut % (Auto) 95.0 H, Lymph % (Auto) 2.1 L, Day % (Auto) 2.2, Eos % (Auto) 0.2, Baso % (Auto) 0.5, Neut # (Auto) 23.0 H, Lymph # (Auto) 0.5 L, Day # (Auto) 0.5, Eos # (Auto) 0.0, Baso # (Auto) 0.1, Total Counted 100, Neutrophils % (Manual) 90 H, Lymphocytes % (Manual) 8 L, Monocytes % (Manual) 2, Platelet Estimate Normal, RBC Morphology Normal 04/15/21 10:15: Sodium 141, Potassium 2.9 L*, Chloride 107, Carbon Dioxide 23, Anion Gap 13.9, BUN 14, Creatinine 0.80, Estimated Creat Clear 74, Estimated GFR 79, Est GFR ( Amer) 96, Glucose 122 H, Calcium 8.8, Total Bilirubin 0.6, AST 99 H, ALT 62, Alkaline Phosphatase 120, Total Creatine Kinase 190 H, Total Protein 7.0, Albumin 3.6, Globulin 3.4 H, Albumin/Globulin Ratio 1.1 04/15/21 10:15: Plasma/Serum Alcohol < 10 04/15/21 10:15: Lactate 3.9 H 04/15/21 10:22: Specimen Source Right radial, O2 % 50, ABG pH 7.33 L, ABG pCO2 39.4, ABG pO2 175.7 H, ABG HCO3 20.3 L, ABG Total CO2 21.5 L, ABG O2 Saturation 99, ABG Base Excess -5.6 L, Adria
[2021-04-16 11:32] LABS: ABG Base Excess -5.5 mmol/L (-2.4-2.3); ABG HCO3 18.9 mmhg (22.0-26.0); ABG Oxygen Saturation 100 % (90-100); ABG PCO2 29.6 mmhg (35.0-45.0); ABG PH 7.42 mmol/L (7.35-7.45); ABG PO2 206.1 mmhg (80-100); ABG TCO2 19.8 mmhg (23-27)
[2021-04-16 11:35] LABS: Allen's Test Non Applicable; Oxygen 50 %; PEEP 5; Source Left Brachial; Tidal Volume 380; Vent Rate 20
--- NOTE | 2021-04-16 14:33 | HMH.PHAINT ---
UNABLE TO CONDUCT MEDICATION RECONCILIATION AT THIS TIME PATIENT IS VENTILATED AND SEDATED. PATIENT HAS NO FILL HISTORY, NO RECENT APPOINTMENTS, OR FAMILY TO CALL PER NURSE. WILL ATTEMPT MEDICATION RECONCILIATION ONCE PATIENT IS AWAKE.
--- NOTE | 2021-04-16 18:23 | PC.NURSE ---
No acute changes noted this shift, patient remains intubated with 7.5ETT 21@ lip, current vent settings AC mode, FiO2 35%, RR 18, TV 380, Peep 5. OG @55 present, FC patent and draining dark colored urine with sediment at bedside, UOP 30-40cc/hr, R SC TLDL present, CPOT 0 to 1, RASS -2 to 2 this shift, patient has been turned q2h and provided oral care and suctioning, no skin issues noted, patient becomes agitated and restless with stimulation, no s/s of distress noted, vitals have been stable this shift, has remained afebrile.
[2021-04-17] VITALS (27 sets, daily range): BP systolic 97–164; BP diastolic 63–109; PULSE 50–71; RESP 18–22; TEMP 36.3–38.2; O2SAT 98–100; BMI 22.0
--- NOTE | 2021-04-17 06:00 | XR_ITS ---
PROCEDURE INFORMATION: Exam: XR Chest Exam date and time: 04/17/2021 6:00 AM Age: 41 years old Clinical indication: Device placement; Ett placement (vent status); Additional info: Ett and og placement TECHNIQUE: Imaging protocol: XR of the chest. Views: 1 view. COMPARISON: CR XR CHEST PORTABLE 04/16/2021 6:13 AM FINDINGS: Tubes, catheters and devices: The ET tube and nasogastric tube and central venous catheter in good position Lungs: Unremarkable. No consolidation. Pleural spaces: Unremarkable. No pleural effusion. No pneumothorax. Heart/Mediastinum: Unremarkable. No cardiomegaly. Bones/joints: Unremarkable. IMPRESSION: Lines and tubes in good position.
[2021-04-17 07:31] LABS: Basophils % 0.3 % (0.1-2.0); Eosinophils # 0.1 K/mm3 (0.0-0.4); Hematocrit 33.5 % (37.0-47.0); Hemoglobin 10.7 g/dL (12.2-16.2); Lymphocytes # 1.7 K/mm3 (0.7-4.5); Lymphocytes % 13.2 % (10-50); Mean Corpuscular HGB Conc 31.9 g/dL (31.8-35.4); Mean Corpuscular Volume 90.8 fl (81-99); Mean Platelet Volume 9.4 fl (7.4-10.4); Monocytes # 0.5 K/mm3 (0.1-1.0); Monocytes % 3.9 % (1.7-9.3); Neutrophils # 10.5 K/mm3 (1.8-7.8); Neutrophils % 81.7 % (37.0-80.0); Platelet Count 214 K/mm3 (142-424); Red Blood Count 3.69 M/mm3 (4.20-5.40); White Blood Count 12.9 K/mm3 (4.8-10.8)
[2021-04-17 07:45] LABS: Anion Gap 8.7 mEq/L (5-15); Blood Urea Nitrogen 15 mg/dl (7-17); Calcium 7.9 mg/dl (8.4-10.2); Carbon Dioxide 22 mmol/L (22.0-30.0); Chloride 111 mmol/L (98-107); Creatinine Clearance Estimated 133 mL/min (50-200); Estimated Glomerular Filt Rate 137 ml/min (>60); GFR (African American) 165 ML/MIN (>60); Glucose 56 mg/dl (74-100); Potassium 3.7 mmoL/L (3.5-5.1); Sodium 138 mmol/L (136-145)
[2021-04-17 08:01] LABS: Procalcitonin 35.4 ng/mL (0.0-2.0)
[2021-04-17 08:18] LABS: ABG Base Excess -7.8 mmol/L (-2.4-2.3); ABG HCO3 17.5 mmhg (22.0-26.0); ABG Oxygen Saturation 99 % (90-100); ABG PCO2 31.2 mmhg (35.0-45.0); ABG PH 7.37 mmol/L (7.35-7.45); ABG PO2 146.9 mmhg (80-100); ABG TCO2 18.5 mmhg (23-27)
[2021-04-17 08:24] LABS: Oxygen 35 %; PEEP 5; Tidal Volume 300; Vent Rate 18
[2021-04-17 08:25] LABS: Allen's Test Patient Unable; Source Right Radial
--- NOTE | 2021-04-17 09:18 | HMH.ACPN2 ---
Internal Medicine - PN: Subj *Date: 04/17/21 *Time: 22:06 Interval history: doing better -labs improved -pending cultures Exam Vital signs and Labs for Last 24 Hours: Temp Pulse Resp BP Pulse Ox 97.3 F L 60 19 130/90 99 04/17/21 04:00 04/17/21 08:00 04/17/21 07:00 04/17/21 07:00 04/17/21 07:00 Laboratory Results - last 24 hr 04/16/21 08:00: Specimen Source Left brachial, O2 % 50, ABG pH 7.42, ABG pCO2 29.6 L, ABG pO2 206.1 H, ABG HCO3 18.9 L, ABG Total CO2 19.8 L, ABG O2 Saturation 100, ABG Base Excess -5.5 L, Orestes Test Non applicable, Vent Rate 20, Tidal Volume 380, PEEP 5 04/17/21 05:46: WBC 12.9 H D, RBC 3.69 L, Hgb 10.7 L, Hct 33.5 L, MCV 90.8, MCH 29.0, MCHC 31.9, RDW 16.0, Plt Count 214, MPV 9.4, Neut % (Auto) 81.7 H, Lymph % (Auto) 13.2, [place] % (Auto) 3.9, Eos % (Auto) 1.0, Baso % (Auto) 0.3, Neut # (Auto) 10.5 H, Lymph # (Auto) 1.7, [place] # (Auto) 0.5, Eos # (Auto) 0.1, Baso # (Auto) 0.0 04/17/21 05:46: Sodium 138, Potassium 3.7, Chloride 111 H, Carbon Dioxide 22, Anion Gap 8.7, BUN 15, Creatinine 0.50 L, Estimated Creat Clear 133, Estimated GFR 137, Est GFR ( Amer) 165 D, Glucose 56 L, Calcium 7.9 L 04/17/21 05:46: Procalcitonin 35.4 H 04/17/21 07:00: Specimen Source Right radial, O2 % 35, ABG pH 7.37, ABG pCO2 31.2 L, ABG pO2 146.9 H, ABG HCO3 17.5 L, ABG Total CO2 18.5 L, ABG O2 Saturation 99, ABG Base Excess -7.8 L, Orestes Test Patient unable, Vent Rate 18, Tidal Volume 300, PEEP 5 I & O for Last 24 hours: Intake & Output 04/14/21 04/15/21 04/16/21 04/17/21 11:59 11:59 11:59 11:59 Intake Total 3717 / 3817 2689 / 2689 Output Total 790 / 815 715 / 715 Balance 2927 / 3002 1973 / 1973 Weight 110 lb 121 lb 4.068 oz 124 lb 5.451 oz Microbiology Reports for the Last 24 Hours: Microbiology 04/15/21 09:45 Sputum - Endotracheal Tube Aspirate Gram Stain - Final 04/15/21 09:45 Sputum - Endotracheal Tube Aspirate Sputum Culture - Preliminary 04/15/21 13:10 Cerebral Spinal Fluid Gram Stain - Final 04/15/21 13:10 Cerebral Spinal Fluid CSF Culture - Preliminary NO GROWTH AFTER 24 HOURS - Constitutional Comments: on vent - sedated - *Routine HEENT Exam Head: Present: normocephalic Eye: Present: EOMI, PERRL. Absent: conjunctival icterus ENT: Present: mucous membranes dry - *Routine Neck Exam Absent: JVD - *Routine Respiratory Exam Present: patient mechanically ventilated - *Routine Cardiovascular Exam Present: RRR - *Routine Abdominal Exam Present: soft - *Routine Extremities Exam Absent: edema - *Routine Skin Exam Present: intact - *Routine Neurological Exam Present: altered mental status. Absent: fasciculations - Routine Psychiatric Exam Present: unable to assess Assessment and Plan (1) Amphetamine abuse Status: Acute Category: Medical Code(s): F15.10 - Other stimulant abuse, uncomplicated (2) Hypokalemia Status: Acute Category: Medical Code(s): E87.6 - Hypokalemia (3) IVDU (intravenous drug user) Status: Acute Category: Social Hx Code(s): F19.90 - Other psychoactive substance use, unspecified, uncomplicated (4) Severe sepsis with acute organ dysfunction Status: Acute Category: Medical Code(s): A41.9 - Sepsis, unspecified organism; R65.20 - Severe sepsis without septic shock
[2021-04-17 17:45] LABS: Vancomycin,Trough < 5.0 ug/mL (5.0-10.0)
[2021-04-17 22:40] LABS: Vancomycin,Peak 17.2 ug/ml (11-39)
[2021-04-18] VITALS (32 sets, daily range): BP systolic 111–163; BP diastolic 73–109; PULSE 45–75; RESP 18–23; TEMP 36.1–37.7; O2SAT 99–100; BMI 22.8
[2021-04-18 07:03] LABS: Basophils # 0.1 K/mm3 (0-0.2); Basophils % 0.5 % (0.1-2.0); Eosinophils # 0.1 K/mm3 (0.0-0.4); Eosinophils % 1.3 % (0.1-12.0); Hemoglobin 11.4 g/dL (12.2-16.2); Lymphocytes # 2.1 K/mm3 (0.7-4.5); Lymphocytes % 21.9 % (10-50); Mean Corpuscular HGB Conc 31.7 g/dL (31.8-35.4); Mean Corpuscular Hemoglobin 28.9 pg (27.0-31.2); Mean Platelet Volume 8.9 fl (7.4-10.4); Monocytes # 0.4 K/mm3 (0.1-1.0); Monocytes % 4.2 % (1.7-9.3); Neutrophils # 6.9 K/mm3 (1.8-7.8); Neutrophils % 72.1 % (37.0-80.0); Platelet Count 253 K/mm3 (142-424); Red Blood Count 3.96 M/mm3 (4.20-5.40); Red Cell Distribution Width 15.9 % (11.5-17.5); White Blood Count 9.5 K/mm3 (4.8-10.8)
[2021-04-18 07:14] LABS: ABG Base Excess -8.4 mmol/L (-2.4-2.3); ABG HCO3 17.2 mmhg (22.0-26.0); ABG Oxygen Saturation 99 % (90-100); ABG PCO2 31.9 mmhg (35.0-45.0); ABG PH 7.35 mmol/L (7.35-7.45); ABG PO2 145.4 mmhg (80-100); ABG TCO2 18.2 mmhg (23-27)
[2021-04-18 07:27] LABS: Anion Gap 7.4 mEq/L (5-15); Blood Urea Nitrogen 11 mg/dl (7-17); Calcium 7.8 mg/dl (8.4-10.2); Carbon Dioxide 21 mmol/L (22.0-30.0); Chloride 113 mmol/L (98-107); Creatinine Clearance Estimated 172 mL/min (50-200); Estimated Glomerular Filt Rate 177 ml/min (>60); GFR (African American) 214 ML/MIN (>60); Glucose 78 mg/dl (74-100); Potassium 3.4 mmoL/L (3.5-5.1); Sodium 138 mmol/L (136-145)
[2021-04-18 07:35] LABS: Allen's Test Patient Unable; Oxygen 35% %; PEEP 5; Source Right Radial; Tidal Volume 380; Vent Rate 18
[2021-04-18 07:36] LABS: Lactate Arterial 0.8 mmol/L (0.4-2.0)
--- NOTE | 2021-04-18 08:23 | PC.NURSE ---
RESP CARE NOTE: Pt placed on Spontaneous Breathing Trial at 5/5 cmH2O and 25% FIO2.
--- NOTE | 2021-04-18 09:18 | HMH.ACPN2 ---
Internal Medicine - PN: Subj *Date: 04/18/21 *Time: 10:07 Interval history: 41-year-old female patient lying in bed intubated and sedated. She still remains on high dose sedation. Daughter at bedside, daughter reports she has not seen mother since January of last year and is unaware of her taking any medications or having any medical problems Exam Vital signs and Labs for Last 24 Hours: Temp Pulse Resp BP Pulse Ox 98.2 F 51 L 20 140/100 H 100 04/18/21 08:00 04/18/21 08:00 04/18/21 07:00 04/18/21 08:00 04/18/21 08:00 Laboratory Results - last 24 hr 04/17/21 16:15: Vancomycin Trough < 5.0 L 04/17/21 22:10: Vancomycin Peak 17.2 04/18/21 06:35: WBC 9.5 D, RBC 3.96 L, Hgb 11.4 L, Hct 36.0 L, MCV 91.0, MCH 28.9, MCHC 31.7 L, RDW 15.9, Plt Count 253, MPV 8.9, Neut % (Auto) 72.1, Lymph % (Auto) 21.9, [place] % (Auto) 4.2, Eos % (Auto) 1.3, Baso % (Auto) 0.5, Neut # (Auto) 6.9, Lymph # (Auto) 2.1, [place] # (Auto) 0.4, Eos # (Auto) 0.1, Baso # (Auto) 0.1 04/18/21 06:35: Sodium 138, Potassium 3.4 L, Chloride 113 H, Carbon Dioxide 21 L, Anion Gap 7.4, BUN 11 D, Creatinine 0.40 L, Estimated Creat Clear 172, Estimated GFR 177, Est GFR ( Amer) 214 D, Glucose 78, Calcium 7.8 L 04/18/21 07:00: ABG Lactate 0.8 04/18/21 07:00: Specimen Source Right radial, O2 % 35%, ABG pH 7.35, ABG pCO2 31.9 L, ABG pO2 145.4 H, ABG HCO3 17.2 L, ABG Total CO2 18.2 L, ABG O2 Saturation 99, ABG Base Excess -8.4 L, Orestes Test Patient unable, Vent Rate 18, Tidal Volume 380, PEEP 5 I & O for Last 24 hours: Intake & Output 04/15/21 04/16/21 04/17/21 04/18/21 23:59 23:59 23:59 23:59 Intake Total 2413 / 2525 3005 / 3171 3237 / 3368 1151.875 / 1151.875 Output Total 416 / 437 868 / 898 886 / 896 405 / 405 Balance 1996 2137 / 2273 2351 / 2472 746.875 / 746.875 Weight 114 lb 13.773 oz 121 lb 4.068 oz 124 lb 5.451 oz 128 lb 10 oz Microbiology Reports for the Last 24 Hours: Microbiology 04/15/21 13:10 Cerebral Spinal Fluid Gram Stain - Final 04/15/21 13:10 Cerebral Spinal Fluid CSF Culture - Preliminary NO GROWTH AFTER 48 HOURS 04/15/21 10:15 Blood Blood Culture - Preliminary NO GROWTH AFTER 48 HOURS 04/15/21 10:15 Blood Blood Culture - Preliminary NO GROWTH AFTER 48 HOURS 04/15/21 09:45 Sputum - Endotracheal Tube Aspirate Gram Stain - Final 04/15/21 09:45 Sputum - Endotracheal Tube Aspirate Sputum Culture - Preliminary - Constitutional no acute distress - *Routine HEENT Exam Head: Present: normocephalic ENT: Present: mucous membranes moist - *Routine Neck Exam Present: trachea midline. Absent: tracheal deviation - *Routine Respiratory Exam Present: patient mechanically ventilated, rhonchi. Absent: accessory muscle use - *Routine Cardiovascular Exam Present: RRR - *Routine Abdominal Exam Present: soft, normoactive bowel sounds. Absent: firm - *Routine Extremities Exam Present: pulses intact. Absent: cyanosis, clubbing, edema - *Routine Skin Exam Present: intact, dry. Absent: cyanosis, erythema - *Routine Neurological Exam Present: altered mental status - Routine Psychiatric Exam Present: unable to assess Assessment and Plan (1) Amphetamine abuse Status: Acute Category: Medical Code(s): F15.10 - Other stimulant abuse, uncomplicated (2) Hypokalemia Status: Acute Category: Medical Code(s): E87.6 - Hypokalemia (3) IVDU (intravenous drug user) Status: Acute Category: Social Hx Code(s): F19.90 - Other psychoactive substance use, unspecified, uncomplicated (4) Severe sepsis with acute organ dysfunction Status: Acute Category: Medical Code(s): A41.9 - Sepsis, unspecified organism; R65.20 - Severe sepsis without septic shock - Assessment and plan all Dx Assessment and Plan for all problems:: Rounded with Dr. Fabian, all orders per Dr. Fabian: 1. Continue to wean aline
--- NOTE | 2021-04-18 09:38 | P.PN_ITS ---
Internal Medicine - PN: Subj *Date: 04/18/21 *Time: 09:38 Exam Vital signs and Labs for Last 24 Hours: Temp Pulse Resp BP Pulse Ox 98.6 F 47 L 20 134/92 H 100 04/18/21 09:00 04/18/21 09:00 04/18/21 07:00 04/18/21 09:00 04/18/21 09:00 Laboratory Results - last 24 hr 04/17/21 16:15: Vancomycin Trough < 5.0 L 04/17/21 22:10: Vancomycin Peak 17.2 04/18/21 06:35: WBC 9.5 D, RBC 3.96 L, Hgb 11.4 L, Hct 36.0 L, MCV 91.0, MCH 28.9, MCHC 31.7 L, RDW 15.9, Plt Count 253, MPV 8.9, Neut % (Auto) 72.1, Lymph % (Auto) 21.9, [place] % (Auto) 4.2, Eos % (Auto) 1.3, Baso % (Auto) 0.5, Neut # (Auto) 6.9, Lymph # (Auto) 2.1, [place] # (Auto) 0.4, Eos # (Auto) 0.1, Baso # (Auto) 0.1 04/18/21 06:35: Sodium 138, Potassium 3.4 L, Chloride 113 H, Carbon Dioxide 21 L , Anion Gap 7.4, BUN 11 D, Creatinine 0.40 L, Estimated Creat Clear 172, Estimated GFR 177, Est GFR ( Amer) 214 D, Glucose 78, Calcium 7.8 L 04/18/21 07:00: ABG Lactate 0.8 04/18/21 07:00: Specimen Source Right radial, O2 % 35%, ABG pH 7.35, ABG pCO2 31.9 L, ABG pO2 145.4 H, ABG HCO3 17.2 L, ABG Total CO2 18.2 L, ABG O2 Saturation 99, ABG Base Excess -8.4 L, Oerstes Test Patient unable, Vent Rate 18, Tidal Volume 380, PEEP 5 I & O for Last 24 hours: Intake & Output 04/15/21 04/16/21 04/17/21 04/18/21 23:59 23:59 23:59 23:59 Intake Total 2413 / 2525 3005 / 3171 3237 / 3368 1151.875 / 1151.875 Output Total 416 / 437 868 / 898 886 / 896 605 / 605 Balance 1996 2137 / 2273 2351 / 2472 546.875 / 546.875 Weight 52.1 kg 55 kg 56.4 kg 58.343 kg Microbiology Reports for the Last 24 Hours: Microbiology 04/15/21 13:10 Cerebral Spinal Fluid Gram Stain - Final 04/15/21 13:10 Cerebral Spinal Fluid CSF Culture - Preliminary NO GROWTH AFTER 48 HOURS 04/15/21 10:15 Blood Blood Culture - Preliminary NO GROWTH AFTER 48 HOURS 04/15/21 10:15 Blood Blood Culture - Preliminary NO GROWTH AFTER 48 HOURS 04/15/21 09:45 Sputum - Endotracheal Tube Aspirate Gram Stain - Final 04/15/21 09:45 Sputum - Endotracheal Tube Aspirate Sputum Culture - Preliminary Assessment and Plan (1) Amphetamine abuse Status: Acute Category: Medical Code(s): F15.10 - Other stimulant abuse, uncomplicated (2) Hypokalemia Status: Acute Category: Medical Code(s): E87.6 - Hypokalemia (3) IVDU (intravenous drug user) Status: Acute Category: Social Hx Code(s): F19.90 - Other psychoactive substance use, unspecified, uncomplicated (4) Severe sepsis with acute organ dysfunction Status: Acute Category: Medical Code(s): A41.9 - Sepsis, unspecified organism; R65.20 - Severe sepsis without septic shock The patient's infection will respond to the chosen ABx?: Yes (EMPIRIC SEPSIS THERAPY) Is the patient receiving the right drug, dose, and route?: Yes Could a more targeted ABx be ordered?: No (CULTURES PENDING)
--- NOTE | 2021-04-18 15:41 | HMH.PULMCON ---
*Admission Date: 04/15/21 *Reason for consult:: Acute hypoxic respiratory failure *History of present illness: Patient intubated and sedated. Much of the history is obtained from chart review. Ms. 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 Patient was extremely agitated on presentation. [facility] History Medical History: Denies:: Internal Pacemaker *Have you ever received a pneumonia vaccine?: No *Have you received a flu vaccine this season?: No Other Surgeries: No: Pacemaker Amputation: No Fractures: No - *Social History Smoking Status: Current every day smoker # Packs/Day (cigarettes): 1 Alcohol Intake: current Substance Use Type: marijuana, heroin, amphetamines, IV drugs Last Used Substance: hours (ago) *Occupational Status:: unemployed *Travel in the last 8 weeks: None Family Hx:: Unable to obtain ROS - Review of Systems Review of systems:: unable to obtain Patient intubated and sedated Meds Home Medications Medication Instructions Recorded Confirmed Type No Known Home Medications 04/18/21 04/18/21 History Allergies Allergy/AdvReac Type Severity Reaction Status Date / Time codeine Allergy Verified 06/10/20 16:01 Penicillins Allergy Verified 06/10/20 16:01 Exam - Constitutional Constitutional:: Present: no acute distress, comfortable - HENMT Exam HENMT: Present: normocephalic, atraumatic - Eye Exam Eyes:: Present: normal appearance both eyes and related structures Comment:: Pupils pinpoint nonreactive to light - Neck Exam Neck:: Present: normal visual inspection - Respiratory Exam Respiratory:: Present: no respiratory distress. Absent: crackles, wheezing - Cardiovascular Exam Cardiac:: Present: S1, S2 - GI Exam GI:: Present: soft - Skin Exam Skin: Present: warm - Neurological Exam Neurological: Absent: alert, awake, normal cognition - Extremities Exam Extremities: Present: no cyanosis, no clubbing, no edema Internal Medicine - CN: Reslt - Labs CBC & Chem 7: 04/18/21 06:35 04/18/21 06:35 Labs: Short CBC 04/18/21 Range/Units 06:35 WBC 9.5 D (4.8-10.8) K/mm3 Hgb 11.4 L (12.2-16.2) g/dL Hct 36.0 L (37.0-47.0) % Plt Count 253 (142-424) K/mm3 [facility] 04/18/21 06:35 Sodium 138 Potassium 3.4 L Chloride 113 H Carbon Dioxide 21 L BUN 11 D Creatinine 0.40 L Glucose 78 Calcium 7.8 L - ABG Interpretation ABG results: 04/15/21 04/15/21 04/16/21 09:59 10:22 08:00 ABG pH 7.33 L 7.33 L 7.42 ABG pCO2 39.4 39.4 29.6 L ABG pO2 175.7 H 175.7 H 206.1 H ABG HCO3 20.3 L 20.3 L 18.9 L ABG Total CO2 21.5 L 21.5 L 19.8 L ABG O2 Saturation 99 99 100 ABG Base Excess -5.6 L -5.6 L -5.5 L 04/17/21 04/18/21 07:00 07:00 ABG pH 7.37 7.35 ABG pCO2 31.2 L 31.9 L ABG pO2 146.9 H 145.4 H ABG HCO3 17.5 L 17.2 L ABG Total CO2 18.5 L 18.2 L ABG O2 Saturation 99 99 ABG Base Excess -7.8 L -8.4 L Assessment and Plan (1) Amphetamine abuse Status: Acute Category: Medical Code(s): F15.10 - Other stimulant abuse, uncomplicated (2) Hypokalemia Status: Acute Category: Medical Code(s): E87.6 - Hypokalemia (3) IVDU (intravenous drug user) Status: Acute Category: Social Hx Code(s): F19.90 - Other psychoactive substance use, unspecified, uncomplicated (4) Severe sepsis with acute organ dysfunction Status: Acute Category: Medical Code(s): A41.9 - Sepsis, unspecified organism; R65.20 - Severe sepsis without septic shock - Assessment and plan all Dx Assessment and Plan for all problems:: #Acute respiratory failure: Ms. St is a 41-year-old female presented to the hospital worsening respirator
--- NOTE | 2021-04-18 21:05 | PC.NURSE ---
tried to wean pt's sedation from .2 versed to .16 versed and pt started bucking the vent, attempting to sit up and pull tube, increased versed drip back to .2 and increased fentanyl drip to 250mcg, pt still restless for approximately 40 minutes until finally calmed back down
[2021-04-19] VITALS (16 sets, daily range): BP systolic 115–161; BP diastolic 78–111; PULSE 43–78; RESP 12–27; TEMP 35.9–36.6; O2SAT 97–100; BMI 23.1
--- NOTE | 2021-04-19 06:00 | XR_ITS ---
PROCEDURE INFORMATION: Exam: XR Chest Exam date and time: 04/19/2021 6:00 AM Age: 41 years old Clinical indication: Device placement; Other: Og; Additional info: Ett and og placement TECHNIQUE: Imaging protocol: XR of the chest. Views: 1 view. COMPARISON: CR XR CHEST PORTABLE 04/17/2021 5:37 AM FINDINGS: Tubes, catheters and devices: Endotracheal tube terminates approximately 4 cm above the shelia. OG tube terminates in the region of the gastric body. Right IJ central venous catheter terminates in the region of the right atrium. Lungs: Unremarkable. No consolidation. Pleural spaces: Unremarkable. No pleural effusion. No pneumothorax. Heart/Mediastinum: Unremarkable. No cardiomegaly. Bones/joints: Unremarkable. IMPRESSION: 1. Endotracheal tube terminates approximately 4 cm above the shelia. 2. OG tube terminates in the region of the gastric body.
[2021-04-19 06:46] LABS: Basophils % 0.5 % (0.1-2.0); Eosinophils # 0.3 K/mm3 (0.0-0.4); Eosinophils % 6.8 % (0.1-12.0); Hematocrit 34.9 % (37.0-47.0); Hemoglobin 11.1 g/dL (12.2-16.2); Lymphocytes # 1.6 K/mm3 (0.7-4.5); Lymphocytes % 35.4 % (10-50); Mean Corpuscular HGB Conc 31.9 g/dL (31.8-35.4); Mean Corpuscular Hemoglobin 28.9 pg (27.0-31.2); Mean Corpuscular Volume 90.5 fl (81-99); Mean Platelet Volume 8.8 fl (7.4-10.4); Monocytes # 0.2 K/mm3 (0.1-1.0); Monocytes % 4.4 % (1.7-9.3); Neutrophils # 2.4 K/mm3 (1.8-7.8); Neutrophils % 52.8 % (37.0-80.0); Platelet Count 238 K/mm3 (142-424); Red Blood Count 3.85 M/mm3 (4.20-5.40); Red Cell Distribution Width 15.8 % (11.5-17.5); White Blood Count 4.5 K/mm3 (4.8-10.8)
[2021-04-19 06:59] LABS: Anion Gap 12.2 mEq/L (5-15); Blood Urea Nitrogen 5 mg/dl (7-17); Calcium 7.5 mg/dl (8.4-10.2); Carbon Dioxide 20 mmol/L (22.0-30.0); Chloride 111 mmol/L (98-107); Creatinine Clearance Estimated 175 mL/min (50-200); Estimated Glomerular Filt Rate 177 ml/min (>60); GFR (African American) 214 ML/MIN (>60); Glucose 55 mg/dl (74-100); Potassium 3.2 mmoL/L (3.5-5.1); Sodium 140 mmol/L (136-145)
[2021-04-19 07:44] LABS: ABG Base Excess -5.9 mmol/L (-2.4-2.3); ABG HCO3 19.5 mmhg (22.0-26.0); ABG Oxygen Saturation 99 % (90-100); ABG PCO2 35.2 mmhg (35.0-45.0); ABG PH 7.36 mmol/L (7.35-7.45); ABG PO2 160.8 mmhg (80-100); ABG TCO2 20.6 mmhg (23-27)
[2021-04-19 07:49] LABS: Allen's Test Patient Unable; Lactate Arterial 0.7 mmol/L (0.4-2.0); Oxygen 35% %; PEEP 5; Source Left Radial; Tidal Volume 380; Vent Rate 18
--- NOTE | 2021-04-19 09:30 | PC.NURSE ---
Fentanttricia gtt and Versed gtt turned OFF for planned extubation today. Pt was on Fentanyl 250mcg/hr and Versed 11mg/hr prior to being turned OFF. Pt following commands, is sitting up in bed with her head off the pillow, eyes are open, and she is combative. Bilateral hand mittens are on.
--- NOTE | 2021-04-19 09:35 | HMH.PULMPN ---
Internal Medicine - PN: Subj *Date: 04/19/21 *Time: 11:44 Interval history: No acute respiratory vents overnight. Patient continues to remain on minimal ventilator settings Exam - Constitutional Constitutional:: Absent: no acute distress, comfortable - HENMT Exam HENMT: Present: normocephalic - Eye Exam Eyes:: Present: normal appearance both eyes and related structures - Neck Exam Neck:: Present: normal visual inspection - Respiratory Exam Respiratory:: Present: normal breath sounds, no respiratory distress. Absent: accessory muscle use, wheezing - Cardiovascular Exam Cardiac:: Present: S1, S2 - GI Exam GI:: Present: soft - Skin Exam Skin: Present: warm, no rash - Neurological Exam Neurological: Present: alert, awake - Extremities Exam Extremities: Present: no cyanosis, no clubbing - Psychiatric Exam Psychiatric: Present: agitated Assessment and Plan (1) Amphetamine abuse Status: Acute Category: Medical Code(s): F15.10 - Other stimulant abuse, uncomplicated (2) Hypokalemia Status: Acute Category: Medical Code(s): E87.6 - Hypokalemia (3) IVDU (intravenous drug user) Status: Acute Category: Social Hx Code(s): F19.90 - Other psychoactive substance use, unspecified, uncomplicated (4) Severe sepsis with acute organ dysfunction Status: Acute Category: Medical Code(s): A41.9 - Sepsis, unspecified organism; R65.20 - Severe sepsis without septic shock - Assessment and plan all Dx Assessment and Plan for all problems:: #Acute respiratory failure: Ms. 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 Patient was extremely agitated on presentation. Chest x-ray did not show any obvious evidence of pneumonia/consolidation. Leukocytosis improving. Plan: -Patient following commands appropriately, agitated. Off sedation. CT head on admission no acute intracranial abnormality. CSF analysis negative for meningitis so far. -Continue to remain on minimal ventilator settings. Successfully weaned sedation and passed her SBT. Appears agitated. Chest x-ray stable with no evidence of airspace disease. ABG within normal limits. Plan to extubate to nasal cannula. Gram stain normal respiratory ren. Blood and CSF cultures no growth so far. -Leukocytosis improving. Cultures no growth so far. Patient was initiated on vancomycin cefepime and clindamycin. Given evidence of pneumonia negative cultures so far no clinical improvement in her status, will wean to levofloxacin to complete a 5-day course. CSF fluid differential, 2 WBC, no evidence of meningitis. -Hemodynamically stable. No obvious evidence of systolic heart failure. No obvious evidence of vegetations reported. -Abdomen soft nontender. Speech and swallow eval post extubation -Renal function stable. Continue to monitor. - Continue mechanical ventilatory support - Continue AnalgoSedation-wean sedation to facilitate SBT - VAP bundle Elevate head of the bed at 30 to 45 degrees Oral care with chlorhexidne GI ulcer prophylaxis - Famotidine 20mg IV BID Chemical DVT prophylaxis Bowel regimen #Thank you involving pulmonary in this patient care. We will continue to follow.
--- NOTE | 2021-04-19 09:38 | HMH.ACPN2 ---
Internal Medicine - PN: Subj *Date: 04/19/21 *Time: 09:38 Interval history: 41-year-old female patient resting in bed becomes extremely agitated during assessment is sitting up in bed, does not follow any commands. Still requiring high sedation. Blood x2, cerebrospinal fluid, urine, and sputum cultures all negative white blood cell count today 4.5 Exam Vital signs and Labs for Last 24 Hours: Temp Pulse Resp BP Pulse Ox 97.5 F L 57 L 18 115/80 100 04/19/21 00:00 04/19/21 07:00 04/19/21 07:00 04/19/21 07:00 04/19/21 07:00 Laboratory Results - last 24 hr 04/19/21 06:00: Specimen Source Left radial, O2 % 35%, ABG pH 7.36, ABG pCO2 35.2, ABG pO2 160.8 H, ABG HCO3 19.5 L, ABG Total CO2 20.6 L, ABG O2 Saturation 99, ABG Base Excess -5.9 L, Orestes Test Patient unable, ABG Lactate 0.7, Vent Rate 18, Tidal Volume 380, PEEP 5 04/19/21 06:20: WBC 4.5 L D, RBC 3.85 L, Hgb 11.1 L, Hct 34.9 L, MCV 90.5, MCH 28.9, MCHC 31.9, RDW 15.8, Plt Count 238, MPV 8.8, Neut % (Auto) 52.8, Lymph % (Auto) 35.4, Wells % (Auto) 4.4, Eos % (Auto) 6.8, Baso % (Auto) 0.5, Neut # (Auto) 2.4, Lymph # (Auto) 1.6, Wells # (Auto) 0.2, Eos # (Auto) 0.3, Baso # (Auto) 0.0 04/19/21 06:20: Sodium 140, Potassium 3.2 L, Chloride 111 H, Carbon Dioxide 20 L, Anion Gap 12.2, BUN 5 L D, Creatinine 0.40 L, Estimated Creat Clear 175, Estimated GFR 177, Est GFR ( Amer) 214, Glucose 55 L D, Calcium 7.5 L I & O for Last 24 hours: Intake & Output 04/16/21 04/17/21 04/18/21 04/19/21 23:59 23:59 23:59 23:59 Intake Total 3005 / 3171 3237 / 3368 3510.625 / 3622.625 833.875 / 833.875 Output Total 868 / 898 886 / 896 1600 / 1660 1320 / 1320 Balance 2137 / 2273 2351 / 2472 1910.625 / 1962.625 -486.125 / -486.125 Weight 121 lb 4.068 oz 124 lb 5.451 oz 128 lb 10 oz 130 lb 11.746 oz Microbiology Reports for the Last 24 Hours: Microbiology 04/15/21 09:51 Urine,Catheterized Urine Culture - Preliminary NO GROWTH AFTER 24 HOURS 04/15/21 13:10 Cerebral Spinal Fluid Gram Stain - Final 04/15/21 13:10 Cerebral Spinal Fluid CSF Culture - Preliminary NO GROWTH AFTER 72 HOURS 04/15/21 09:45 Sputum - Endotracheal Tube Aspirate Gram Stain - Final 04/15/21 09:45 Sputum - Endotracheal Tube Aspirate Sputum Culture - Final Normal Respiratory Stacey - Constitutional mild distress - *Routine Neck Exam Present: trachea midline. Absent: tracheal deviation - *Routine Respiratory Exam Present: patient mechanically ventilated, decreased breath sounds - *Routine Cardiovascular Exam Present: RRR - *Routine Abdominal Exam Present: soft, normoactive bowel sounds. Absent: firm - *Routine Extremities Exam Present: full ROM, pulses intact. Absent: cyanosis, clubbing, edema - *Routine Skin Exam Present: intact, dry. Absent: cyanosis, erythema - *Routine Neurological Exam Present: altered mental status, moving all extremities. Absent: oriented X3 - Routine Psychiatric Exam Present: unable to assess Assessment and Plan (1) Amphetamine abuse Status: Acute Category: Medical Code(s): F15.10 - Other stimulant abuse, uncomplicated (2) Hypokalemia Status: Acute Category: Medical Code(s): E87.6 - Hypokalemia (3) IVDU (intravenous drug user) Status: Acute Category: Social Hx Code(s): F19.90 - Other psychoactive substance use, unspecified, uncomplicated (4) Severe sepsis with acute organ dysfunction Status: Acute Category: Medical Code(s): A41.9 - Sepsis, unspecified organism; R65.20 - Severe sepsis without septic shock - Assessment and plan all Dx Assessment and Plan for all problems:: Rounded with Dr. Fabian, all orders per Dr. Fabian: 1. Continue to wean O2 as tolerated 2. Wean Sedation as tolerated 3. Pulmonary following
--- NOTE | 2021-04-19 11:00 | PC.NURSE ---
pt extubated @ 1100 and is now on 3L NC. Pt is awake, follows commands, is alert and oriented, and has agreed not to hit staff. Mittens taken off at this time. Daughter (Verónica) @ [facility].
--- NOTE | 2021-04-19 13:09 | PC.NURSE ---
pt has taken her oxygen off, as well as all telemetry monitoring, including BP cuff. She is refusing all care and requests to leave AMA. Dad and friend are at bedside. Pt is agreeable to [facility] but family reports that they have no way to get her there. Contacted case management for assistance with referral.
--- NOTE | 2021-04-19 13:30 | SW/DCPLANNER ---
Addendum entered by Xenia Saxena 04/19/21 14:57: After speaking with this patient again regarding referral process patient has stated that she is not waiting and will be leaving AMA to go home with her father. I have updated Jaziel wyman/ Dr Fabian office. I will also update Chayo w[facility]/ [facility]. Addendum entered by Xenia Saxena 04/19/21 14:47: Chayo wyman/ [facility] has stated that referral has been received but has not been reviewed at this time. I will update patient and nursing staff. Original Note: Patient has expressed an interested in [facility] at time of discharge for drug rehabilitation. Patient stated that at this time she is willing to cooperate with staff and continue to stay inpatient until medically stable for discharge. I explained to patient this can be a lengthy process and patient expressed that she understood. Patients daughter (Verónica Garcias [phone]) was present at time of my visit. I did speak with Admission Coordinator w/ [facility] in [place]: beds are available and they do accept Medicaid insurance. Patient information has been faxed to [facility] intake department at this time. [facility]: phone [phone] fax [phone]
--- NOTE | 2021-04-19 14:46 | PC.NURSE ---
pt is refusing ALL care. She has requested to sign out AMA. Minh Stroud APRN notified. hoisting laborer RNs (Reggie Clay and Irma Saunders) removed right IJ TLDL. Pt has no other IV sites. Palomino catheter removed directly after extubation. Pt has ambulated to bathroom with 1 person assist. 1 large BM this shift. Pt continues to verbally abuse staff, including using foul language as soon as we enter her room. Pt signed AMA paper with mae @ [facility].
--- NOTE | 2021-04-19 15:47 | HMH.DCSUM ---
General - General Admission date:: 04/15/21 Discharge date: 04/19/21 HPI HPI: this patient presented to the ed with hx of drug overdose by family - details from family were limited and unable to obtain hx from pt who was agitated - c/o vomiting and I think I'm gonna . She does report heroin IV use tonight. Pt's sister denies that she was given any narcan, and that I was woken up and my brother told me she shot up with heroin and now she is acting funny . Pt was in tub when sister found her and they brought her to ED. Pt vomiting undigested food and gastric contents. Pt not oriented but awake & drowsy.pt dev fever in the ed and Patient with severe delirium and agitation, now febrile. The only IV access obtained was an IV in her right foot. Nurses unable to obtain other access due to severe agitation and poor venous access. Unable to obtain blood work, chest x-ray, CT of head, echocardiogram due to severe agitation. Requires intubation and sedation to obtain these diagnostics as well as central line placement for access. pt was admitted for ivf and abx at this time with pending cultures Hospital Course Hospital Course: this patient presented to the ed with hx of drug overdose by family - details from family were limited and unable to obtain hx from pt who was agitated - c/o vomiting and I think I'm gonna . She does report heroin IV use tonight. Pt's sister denies that she was given any narcan, and that I was woken up and my brother told me she shot up with heroin and now she is acting funny . Pt was in tub when sister found her and they brought her to ED. Pt vomiting undigested food and gastric contents. Pt not oriented but awake & drowsy.pt dev fever in the ed and Patient with severe delirium and agitation, now febrile. The only IV access obtained was an IV in her right foot. Nurses unable to obtain other access due to severe agitation and poor venous access. Unable to obtain blood work, chest x-ray, CT of head, echocardiogram due to severe agitation. Requires intubation and sedation to obtain these diagnostics as well as central line placement for access. pt was admitted for ivf and abx at this time with pending cultures 04/15/21 CXR: FINDINGS: A single PA view of the chest was obtained. There is no prior exam for comparison. An ET tube is present with the tip at the origin of the right mainstem bronchus. An NG tube is curled in the proximal stomach then reenters the esophagus with the tip in the mid esophagus. The cardiac and mediastinal silhouettes are within normal limits. The lungs are clear. There is no effusion or pneumothorax. No acute osseous abnormality is identified. communications technologist, [place], was notified of tube placement at the time of interpretation. IMPRESSION: No radiographic evidence of acute cardiac or pulmonary disease on this single view of the chest. Tube placement as described. Reviewed, Interpreted and Dictated by Afsaneh Capellan MD Transcribed by Jenae Frost 04/15/21 ECHO: Conclusion 1. Normal left ventricular size, preserved left ventricular systolic function, visually estimated ejection fraction 55% with no regional wall motion abnormality, diastolic parameters are within normal range. 2. Trace mitral and tricuspid regurgitation. Calculated right ventricular systolic pressure 32 mmHg. 3. Inferior vena cava is normal size with normal inspiratory collapse. 4. No significant pericardial effusion noted. Electronically signed by : Joaquim Dash MD 04/15/[address]: FINDINGS: There is artifact on some of the images, possibly related to motion and possibly related to overlying wires and lines. There is no mass effect or midline shift. There is no hydrocephalus. The ventricles are symmetric in size and configuration. There is no extra-axial or intraparenchymal hemorrhage. The posterior fossa is without acute abnormality. The basilar cisterns are preserved. The soft
== END 2021-04-19 15:10 | disposition left against medical advice (07) | DRG 917 ==
LOC: ER 14:12 → ICU 15:29
PROVIDERS: Internal Medicine Pulmonary Disease; Nurse Practitioner Family; Admitting Provider Emergency Medicine; Emergency Provider Emergency Medicine; Visit Provider Emergency Medicine
DX: T40.1X1A Poisoning by heroin, accidental (unintentional), initial encounter; J96.01 Acute respiratory failure with hypoxia; F11.121 Opioid abuse with intoxication delirium; F15.10 Other stimulant abuse, uncomplicated; F17.210 Nicotine dependence, cigarettes, uncomplicated; E87.6 Hypokalemia; F13.10 Sedative, hypnotic or anxiolytic abuse, uncomplicated
CPT/HCPCS: 31500; 94002; 62270; 70450; 71045; 80048; 80051; 80053; 80202; 80305; 80329; 81001; 81025; 82550; 82803; 82945; 83605; 84145; 84155; 85007; 85025; 85651; 86140; 87040; 87070; 87086; 87205; 89051; 93005; 93306; 94003; 94760; 94761; 96365; 96366; 96367; 96375; 96376; 99291; C1751; C9803; J2310; J2405; J2704; J3370; U0003; U0005

== ENCOUNTER 2021-08-04 18:53 | Emergency (ER) | payer OTHER, SELFPAY ==
[2021-08-04 19:02] VITALS: BP 148/80; PULSE 84; RESP 18; TEMP 36.7; O2SAT 99; BMI 22.2
[2021-08-04 19:20] VITALS: BP 148/71; PULSE 81; RESP 18; TEMP 36.7; O2SAT 98
== END 2021-08-04 19:21 ==
PROVIDERS: Emergency Provider Emergency Medicine
DX: Z88.0 Allergy status to penicillin; Z88.5 Allergy status to narcotic agent; Z02.89 Encounter for other administrative examinations
CPT/HCPCS: 99282

== ENCOUNTER → 2023-03-09 15:09 | Outpatient (CLI) | payer OTHER, SELFPAY ==
--- NOTE | 2023-03-09 15:16 | XR_ITS ---
PROCEDURE INFORMATION: Exam: XR Chest Exam date and time: 03/09/2023 3:19 PM Age: 42 years old Clinical indication: Cough and shortness of breath; Additional info: Cough/sob TECHNIQUE: Imaging protocol: Radiologic exam of the chest. Views: 2 views. COMPARISON: CR XR CHEST PORTABLE 04/19/2021 4:59 AM FINDINGS: Lungs: Mild regions of peribronchial thickening at the left lung base. Pleural spaces: Unremarkable. No pleural effusion. No pneumothorax. Heart/Mediastinum: Unremarkable. No cardiomegaly. Bones/joints: Unremarkable. IMPRESSION: Findings compatible with mild changes of bronchitis. ID
[2023-03-09 15:37] LABS: Coronavirus 19, PCR Not Detected (NotDetected); Influenza A, PCR Not Detected (NotDetected); Influenza B, PCR Not Detected (NotDetected)
[2023-03-09 16:21] LABS: Basophils # 0.1 K/mm3 (0-0.2); Basophils % 0.8 % (0.1-2.0); Eosinophils # 0.1 K/mm3 (0.0-0.4); Eosinophils % 1.4 % (0.1-12.0); Hematocrit 46.7 % (37.0-47.0); Hemoglobin 15.7 g/dL (12.2-16.2); Lymphocytes # 2.1 K/mm3 (0.7-4.5); Lymphocytes % 33.6 % (10-50); Mean Corpuscular HGB Conc 33.5 g/dL (31.8-35.4); Mean Corpuscular Hemoglobin 31.6 pg (27.0-31.2); Mean Corpuscular Volume 94.4 fl (81-99); Mean Platelet Volume 8.7 fl (7.4-10.4); Monocytes # 0.2 K/mm3 (0.1-1.0); Monocytes % 3.4 % (1.7-9.3); Neutrophils # 3.9 K/mm3 (1.8-7.8); Neutrophils % 60.9 % (37.0-80.0); Platelet Count 303 K/mm3 (142-424); Red Blood Count 4.95 M/mm3 (4.20-5.40); Red Cell Distribution Width 13.2 % (11.5-17.5); White Blood Count 6.3 K/mm3 (4.8-10.8)
[2023-03-09 16:34] LABS: Hemoglobin A1C 5.3 % (4.0-6.0)
[2023-03-09 16:45] LABS: Alanine Aminotransferase 31 U/L (12-78); Albumin Level 4.4 g/dl (3.5-5.0); Albumin/Globulin Ratio 1.2 (1.1-1.8); Alkaline Phosphatase 99 U/L (38-126); Anion Gap 12.2 mEq/L (5-15); Aspartate Amino Transferase 31 U/L (14-36); Bilirubin,Total 0.2 mg/dl (0.2-1.3); Blood Urea Nitrogen 7 mg/dl (7-17); Calcium 8.9 mg/dl (8.4-10.2); Carbon Dioxide 28 mmol/L (22.0-30.0); Chloride 101 mmol/L (98-107); Cholesterol 155 mg/dl (140-200); Estimated Glomerular Filt Rate 110 ml/min (>60); GFR (African American) 133 ML/MIN (>60); Globulin 3.8 g/dL (1.3-3.2); Glucose 88 mg/dl (74-100); HDL Cholesterol 39 mg/dl (40-60); Potassium 4.2 mmoL/L (3.5-5.1); Sodium 137 mmol/L (136-145); Total Protein,Serum 8.2 g/dl (6.3-8.2); Triglycerides 87 mg/dl (30-150); VLDL Cholesterol 17 mg/dL (0-40)
[2023-03-09 16:56] LABS: Direct LDL Cholesterol 83.57 mg/dL (100-129)
[2023-03-09 17:02] LABS: Free T4 (Free Thyroxine) 1.69 ng/dl (0.78-2.19)
[2023-03-09 17:16] LABS: Thyroid Stimulating Hormone 0.59 uIU/mL (0.465-4.68)
[2023-03-11 11:40] LABS: Hep A Ab, Total Positive (Negative); Hep B Core Ab, Total Negative (Negative); Hep B Surface Ab, Qual Reactive (.)
[2023-03-13 19:14] LABS: HCV Genotype Charge YES; Hepatitis C Genotype 2b (.)
[2023-03-19 08:46] LABS: HIV Screen 4th Generation wRfx Non Reactive; Hepatitis B Surface Antigen Negative
[2023-03-19 08:47] LABS: Hepatitis C Antibody Reactive
== END ==
PROVIDERS: PCP Family Medicine; Visit Provider Family Medicine
DX: Z00.00 Encounter for general adult medical examination without abnormal findings (principal)
CPT/HCPCS: 36415; 71046; 80053; 80061; 83036; 84439; 84443; 85025; 86703; 86704; 86706; 86708; 87340; 87380; 87522; 87636; 87902; G0432

== ENCOUNTER → 2023-03-22 11:08 | Outpatient (CLI) | payer OTHER, SELFPAY ==
--- NOTE | 2023-03-22 11:10 | XR_ITS ---
FINAL REPORT CLINICAL HISTORY: left side rib pain COMPARISON: None FINDINGS: A PA view of the chest and oblique views of the left ribs were obtained. There is no prior exam for comparison. The cardiac and mediastinal silhouettes are within normal limits. The lungs are clear. There is no pneumothorax. Oblique views of the left ribs reveal healing fractures of the 8th and 9th ribs anteriorly on the left. There are no acute displaced rib fracture. IMPRESSION: No acute left rib fracture and no pneumothorax. Reviewed, Interpreted and Dictated by Mik Kendrick MD Transcribed by Idania Enciso Authenticated and [facility]
== END ==
DX: R07.81 Pleurodynia (principal)
CPT/HCPCS: 71101

== ENCOUNTER → 2023-03-28 09:54 | Outpatient (CLI) | payer OTHER, SELFPAY ==
[2023-03-28] MEDS: ALBUTEROL 0.083% 2.5 MG/3 ML NEB IH (10:25)
[2023-03-28 10:35] VITALS: PULSE 77; PULSE 80
== END ==
LOC: RT 09:54
PROVIDERS: Visit Provider Family Medicine
DX: R06.02 Shortness of breath (principal)
CPT/HCPCS: 94060; 94640; 94726; 94729